=== PATIENT | female | born 1950 | race Caucasian/White ===

== ENCOUNTER → 2018-06-02 15:59 | Outpatient (CLI) | payer MEDICARE, OTHER, SELFPAY ==
[2018-06-02 16:28] LABS: Add Manual Diff / Slide Review NO; Basophils Percent Auto 0.8 % (0-2); Eosinophils Percent Auto 4.5 % (2-4); Hematocrit 44.1 % (36-46); Hemoglobin 14.5 g/dL (12.0-16.0); Lymphocytes Percent Auto 18.6 % (25-40); Mean Corpuscular HGB Conc 32.9 % (30-36); Mean Corpuscular Hemoglobin 27.3 PG (26-34); Mean Corpuscular Volume 82.9 fL (80-100); Monocytes Percent Auto 6.7 % (3-14); Neutrophils Absolute Auto 5100 /uL (3000-5900); Neutrophils Percent Auto 69.4 % (50-75); Platelet Count 270 X10^3/uL (150-400); Red Blood Cell Count 5.33 X10^6/uL (4.0-5.2); Red Cell Distribution Width 14.6 % (11.6-14.8); White Blood Cell Count 7.4 X10^3/uL (4.5-11.0)
== END ==
PROVIDERS: PCP Family Medicine; Visit Provider Family Medicine
DX: D64.9 Anemia, unspecified (principal)
CPT/HCPCS: 36415; 85025

== ENCOUNTER → 2018-11-05 17:30 | Outpatient (CLI) | payer MEDICARE, OTHER, SELFPAY | PROVIDERS: PCP Family Medicine; Visit Provider Obstetrics & Gynecology | DX: R33.9 Retention of urine, unspecified (principal) | CPT/HCPCS: 87086 ==

== ENCOUNTER → 2018-12-04 14:07 | Outpatient (CLI) | payer MEDICARE, OTHER, SELFPAY ==
--- NOTE | 2018-12-04 | DI.MG.S_ITS ---
BILATERAL DIGITAL SCREENING MAMMOGRAM 3D/2D WITH CAD: 12/04/2018 CLINICAL: Routine screening. Comparison is made to exams dated: 09/26/2017 mammogram, 09/06/2016 mammogram, and 09/04/2015 mammogram - . The tissue of both breasts is heterogeneously dense. This may lower the sensitivity of mammography. Current study was also evaluated with a Computer Aided Detection (CAD) system. There are benign vascular calcifications in the right breast. No significant masses, calcifications, or other findings are seen in either breast. There has been no significant interval change. IMPRESSION: There is no mammographic evidence of malignancy. A 1 year screening mammogram is recommended. This exam was interpreted at Station ID: [id number]. NOTE: For mammograms, a report in lay terms will be sent to the patient. Approximately 15% of breast malignancies will not be visualized mammographically. In the management of a palpable breast mass, a negative mammogram must not discourage biopsy of a clinically suspicious lesion. Electronically Signed By: Abdirahman [email or web address]/pedrito:12/04/2018 17:30:28 copy to: Antonella Robles letter sent: Normal Exam ACR BI-RADS Category 2: Benign Finding(s) [id number]
--- NOTE | 2018-12-04 14:09 | DI.RAD.S_ITS ---
This blank DEXA report has been sent in error by the PACS system. The correct and complete report will be forthcoming in 1-2 days. Thank you for your patience and understanding. Dictated by: Karen Navarro MD, PhD on 12/05/2018 at 9:29 Approved by: Karen Navarro MD, PhD on 12/05/2018 at 9:29
== END ==
PROVIDERS: PCP Family Medicine; Visit Provider Family Medicine
DX: Z12.31 Encounter for screening mammogram for malignant neoplasm of breast (principal); M81.0 Age-related osteoporosis without current pathological fracture; Z78.0 Asymptomatic menopausal state; Z82.62 Family history of osteoporosis
CPT/HCPCS: 77063; 77067; 77080

== ENCOUNTER → 2018-12-09 11:44 | Outpatient (CLI) | payer MEDICARE, OTHER, SELFPAY ==
[2018-12-09 12:07] LABS: Add Manual Diff / Slide Review NO; Basophils Absolute Auto 100 /uL (0-100); Basophils Percent Auto 0.7 % (0-2); Eosinophils Absolute Auto 400 /uL (0-450); Eosinophils Percent Auto 4.5 % (2-4); Hematocrit 42.1 % (36-46); Hemoglobin 13.6 g/dL (12.0-16.0); Lymphocytes Absolute Auto 1800 /uL (1100-4500); Mean Corpuscular HGB Conc 32.4 % (30-36); Mean Corpuscular Hemoglobin 27.4 PG (26-34); Mean Corpuscular Volume 84.8 fL (80-100); Monocytes Absolute Auto 500 /uL (0-900); Monocytes Percent Auto 5.9 % (3-14); Neutrophils Absolute Auto 5500 /uL (1500-7000); Neutrophils Percent Auto 66.9 % (50-75); Platelet Count 289 X10^3/uL (150-400); Red Blood Cell Count 4.97 X10^6/uL (4.0-5.2); Red Cell Distribution Width 13.7 % (11.6-14.8); White Blood Cell Count 8.3 X10^3/uL (4.5-11.0)
[2018-12-09 13:18] LABS: Alanine Aminotransferase 30 IU/L (9-52); Albumin 4.1 g/dL (3.5-5.0); Albumin Globulin Ratio 1.5 (1.0-2.8); Alkaline Phosphatase 99 U/L (38-126); Aspartate Aminotransferase 27 IU/L (14-36); BUN Creatinine Ratio 28.8 (6-22); Bilirubin Total 0.3 mg/dL (0.2-1.3); Blood Urea Nitrogen 23 mg/dL (7-17); Calcium 9.7 mg/dL (8.4-10.2); Carbon Dioxide 30 mmol/L (22-32); Chloride 102 mmol/L (98-107); Cholesterol 198 mg/dL (140-199); Estimated Glomerular Filt Rate > 60.0 mL/min (>60); Globulin 2.7 g/dL (1.7-4.1); Glucose 88 mg/dL (80-110); HDL Cholesterol 54 mg/dL (40-60); HEMOLYSIS < 15 (0-50); LDL Cholesterol Calculated 121 mg/dL (<100); Sodium 141 mmol/L (137-145); Total Protein 6.8 g/dL (6.3-8.2); Triglycerides 113 mg/dL (35-150)
[2018-12-09 13:49] LABS: Thyroid Stimulating Hormone 4.65 uIU/mL (0.47-4.68)
== END ==
PROVIDERS: PCP Family Medicine; Visit Provider Family Medicine
DX: I10 Essential (primary) hypertension (principal); D50.0 Iron deficiency anemia secondary to blood loss (chronic)
CPT/HCPCS: 36415; 80053; 80061; 84443; 85025

== ENCOUNTER → 2019-01-27 13:44 | Outpatient (CLI) | payer MEDICARE, OTHER, SELFPAY ==
[2019-01-27 15:06] LABS: Free T3, Triiodothyronine Free 2.91 pg/mL (2.77-5.27)
[2019-01-27 15:20] LABS: Thyroid Stimulating Hormone 4.74 uIU/mL (0.47-4.68)
[2019-01-29 15:06] LABS: Thyroid Peroxidase Antibodies < 1 IU/mL (< 9)
[2019-02-02 15:00] LABS: Triiodothyronine T3 Reverse 10 ng/dL (8-25)
== END ==
PROVIDERS: PCP Family Medicine; Visit Provider Family Medicine
DX: E03.9 Hypothyroidism, unspecified (principal)
CPT/HCPCS: 36415; 84439; 84443; 84481; 84482; 86376

== ENCOUNTER → 2019-05-13 14:43 | Outpatient (CLI) | payer MEDICARE, OTHER, SELFPAY ==
[2019-05-13 15:34] LABS: Add Manual Diff / Slide Review NO; Basophils Absolute Auto 0 /uL (0-100); Basophils Percent Auto 0.7 % (0-2); Eosinophils Absolute Auto 200 /uL (0-450); Eosinophils Percent Auto 2.9 % (2-4); Hematocrit 44.3 % (36-46); Hemoglobin 14.6 g/dL (12.0-16.0); Lymphocytes Absolute Auto 1100 /uL (1100-4500); Mean Corpuscular HGB Conc 32.9 % (30-36); Mean Corpuscular Volume 81.8 fL (80-100); Monocytes Absolute Auto 500 /uL (0-900); Monocytes Percent Auto 8.4 % (3-14); Neutrophils Absolute Auto 4400 /uL (1500-7000); Platelet Count 125 X10^3/uL (150-400); Red Blood Cell Count 5.41 X10^6/uL (4.0-5.2); Red Cell Distribution Width 14.9 % (11.6-14.8); White Blood Cell Count 6.3 X10^3/uL (4.5-11.0)
[2019-05-13 15:55] LABS: HEMOLYSIS < 15 (0-50); Iron 99 ug/dL (37-170)
[2019-05-13 16:07] LABS: Percent Iron Saturation 32 % (15-50); Total Iron Binding Capacity 305 ug/dL (265-497); Transferrin 244 mg/dL (206-381)
[2019-05-13 16:14] LABS: Free T4, Direct Thyroxine 1.03 ng/dL (0.78-2.19)
[2019-05-13 16:18] LABS: Ferritin 21.3 ng/mL (11.1-264)
[2019-05-13 16:28] LABS: Thyroid Stimulating Hormone 1.33 uIU/mL (0.47-4.68)
[2019-05-15 15:25] LABS: HSV 2 IGG AB < 0.90 index (< 0.90); HSV1IGG < 0.90 index (< 0.90)
== END ==
PROVIDERS: PCP Family Medicine; Visit Provider Family Medicine
DX: E03.9 Hypothyroidism, unspecified (principal); L98.9 Disorder of the skin and subcutaneous tissue, unspecified; D50.0 Iron deficiency anemia secondary to blood loss (chronic)
CPT/HCPCS: 36415; 82728; 83540; 83550; 84439; 84443; 84481; 85025; 86695; 86696

== ENCOUNTER → 2019-06-01 16:40 | Outpatient (CLI) | payer MEDICARE, OTHER, SELFPAY ==
[2019-06-04 14:18] LABS: Fecal Immunochemical Test NOT DETECTED (NOT DETECTED)
== END ==
PROVIDERS: PCP Family Medicine; Visit Provider Family Medicine
DX: Z12.11 Encounter for screening for malignant neoplasm of colon (principal)
CPT/HCPCS: 82274

== ENCOUNTER 2019-06-17 16:00 | Outpatient (RCR) | payer MEDICARE, OTHER, SELFPAY ==
--- NOTE | 2019-03-18 19:25 | PT.OIE ---
Current Diagnoses Stress incontinence (female) (male) (03/16/19) Past Medical History (Last Updated 06/10/18 @ 12:31 by Ellie Reyna) Amebic dysentery (Acute ~1963) Chickenpox (Acute ~1952) Chronic back pain (Acute ~1999) Foot pain (Acute ~1969) Fracture (Acute) GERD (gastroesophageal reflux disease) (Acute ~1989) Hepatitis A (Acute ~1963) History of frequent headaches (Acute ~2004) Hyperlipidemia (Acute) Hypertension (Acute ~2003) Malaria (Acute ~1960) Nasal septal perforation (Acute ~2009) Osteopenia (Acute ~1999) Positive PPD (Acute ~1979) Redundant colon (Acute) Rubella (Acute ~1961) Seasonal allergies (Acute ~1955) Shoulder pain (Acute ~2004) Sunstroke (Acute ~1964) Vision abnormalities (Acute) Whooping cough (Acute ~1948) Past Surgical History (Last Updated 06/10/18 @ 12:31 by Ellie Reyna) Fusion of lumbar spine (Resolved ~01/14/17) Anesthesia (Inactive) History of third molar tooth extraction (~1969) Status post appendectomy (~1964) Status post ovarian cystectomy (~1964) Status post tonsillectomy and adenoidectomy (~1951) Status post vaginal hysterectomy (~1981) Provider Visit Care Team Role Provider Type Antonella Robles DO Primary Care Provider Physician Specialty: Family Practice Address: [address] [place] [address], [address] Email: [email or web address] Christen Boo MD Attending Provider Non-Staff Specialty: OPERATIONS ASST Address: [facility] [address], [address] Email: Physical Therapy Initial Evaluation PT-OP-A Visit Information Start: 03/18/19 18:57 Freq: Status: Active Protocol: Document 03/16/19 13:45 [facility] (Rec: 03/18/19 19:25 [facility] [email or web address]) Out-Patient Physical Therapy Visit Information Visit Information Visit Type Initial Evaluation Visit Note 68 year old female s/p anterior posterior repain on 11/03/19 who is referred for pelvic floor strengthening and urinary stress incontinence Visit Start Time 13:45 Visit Stop Time 14:30 Total Visit Minutes 45 Visit Number 1 Evaluation Information Evaluation Date 03/16/19 PT-OP-B Current Condition Start: 03/18/19 18:57 Freq: Status: Active Protocol: Document 03/16/19 13:45 [facility] (Rec: 03/18/19 19:25 [facility] [email or web address]) Current Condition History of Current Condition Onset Date October 2019 Current Complaints urinary stress incontinence and pelvic floor weakness History of Current Condition 68 year old female referred to PT for pelvic floor strengthening s/p a anterior and posterior repair. She reports prior to her surgery she experienced pelvic pressure and heaviness as well as urgnecy. Now she is experiencing urinary leakage with coughing and sneezing or bending movements without first engaging her pelvic floor. She is still experiencing some urgency but not as severe as she had been. She also has a history of L4 -5 lumbar fusion in 2017 which she still has some low back discomfort from. Her pain in her low sacral area ranges from 2-6/10 depending on activity Treatment Goals Patient/Caregiver Goals Goals include reducing urinary incontinence Prior Functional Status Baseline Function- ADL's Independent Baseline Function- Mobility Independent Baseline Function- Recreation/Hobbies no leaking with activity or coughing/sneezing PT-OP-C Subjective Start: 03/18/19 18:57 Freq: Status: Active Protocol: Document 03/16/19 13:45 AM[facility] (Rec: 03/18/19 19:25 AM[facility] [email or web address]) Patient Questionnaires Pelvic Pain and Urgency/Frequency Patient Symptom Scale Pelvic Pain Score 10 PT-OP-F Manual Assessment Start: 03/18/19 18:57 Freq: Status: Active Protocol: Document 03/16/19 13:45 [facility] (Rec: 03/18/19 19:25 [facility] [email or web address]) Manual Assessments Soft Tissue Assessment Soft Tissue Mobility Assessment guarding noted on the right lateral wall of the levator ani from 6-9 PT-OP-I Pelvic Floor Start: 03/18/19 18:57 Freq: Status: Active Protocol: Document 03/16/19 13:45 AM[facility] (Rec: 03/18/19 19:25 AM[facility] [email or web address]) Pelvic Floor Assessment Urine Pelvic Floor Surgery Yes Urinary Symptoms Urge Sensation Other Urinary Symptoms urinary stress incontinence Leakage Size Small Leakage Cause Cough Exercise Sneeze Urge Other Leakage Causes bending over quickly and first thing in the AM Leaks Per Day 3 per week Voiding Frequency every 1.5-2 hours Nocturia 2-3 times per night Pads Used In 24 Hours changes as needed throughout the day Urine Pad Type Panty Liner Pelvic Clock Pelvic Clock 12-3 Atrophy Pelvic Clock 3-6 Atrophy Pelvic Clock 6-9 Guarding Pelvic Clock 9-12 Atrophy SEMG (uV) Baseline 2.3 10 Second Contraction 11.8 Recruitment Pattern Fair Relaxation Fair Holding Fair Stability of Hold Fair SEMG Stability of Rest Fair Contraction Ability Voluntary Contraction Weak Voluntary Relaxation Weak Manual Muscle Testing Left 2 Manual Muscle Testing Right 3 Manual Muscle Testing Anterior 3 Manual Muscle Testing Posterior 3 Muscle Endurance (Seconds) 5 Comments Pelvic Floor Comments ON EMG BIOFEEDBACK average is 11.8 uv, max of 23.3 uv, resting tone of 2.3 uv PT-OP-Q Treatments Start: 03/18/19 18:57 Freq: Status: Active Protocol: Document 03/16/19 13:45 [facility] (Rec: 03/18/19 19:25 COUNTS INCLUDE 234 BEDS AT THE [facility] [email or web address]) Therapeutic Exercises Supine Exercises 1 Supine Exercise Name EMG BIOFEEDBACK FOR PELVIC FLOOR RECRUITMENT Comments began pelvic floor contractions of 10 second hold time and 10 second relax PT-OP-T Assessment and Plan Start: 03/18/19 18:57 Freq: Status: Active Protocol: Document 03/16/19 13:45 AM[facility] (Rec: 03/18/19 19:25 COUNTS INCLUDE 234 BEDS AT THE [facility] [email or web address]) Physical Therapy Assessment Rehab Potential Rehabilitation Potential Excellent Evaluation Complexity Number of Personal Factors/Comorbidities 0 Number of Body Systems Impaired 1-2 Clinical Presentation at Evaluation Stable Impairments Impairments Activity Tolerance Pain Strength Tone Other Impairments urinary stress incontinence Goals Four Impairment The patient lacks a home program for pelvic floor strengthening Retail Banker Goal (LTG) Steven is independent with a home program for pelvic floor stabilization to support her pelvic organs Three Impairment guarding of the right illiococcygeus and pain with intercourse Long-Term Goal (LTG) With manual therapy techniques and stretches we are able to relax the right illiococcygeus and Steven is no longer experiencing pain with intercourse LTG Duration 8 weeks Two Impairment Decreased endurance of the pelvic floor, currently 5 second hold time Short Term Goal (STG) Improve endurance holds to 10 seconds in supine One Impairment pelvic floor weakness s/p anterior posterior repair Short Term Goal (STG) improve recruitment of the left lateral wall of the pelvic floor as this is the weaker side with MMT of 2/5 STG Duration 4 weeks Retail Banker Goal (LTG) Improve pelvic floor strengh to MMT of 4/5 for improved support of the bladder LTG Duration 8 weeks Assessment Summary Assessment Steven presents to physical therapy today at 4 months s/p her anterior posterior repair for pelvic organ prolapse. At this point she is experiencing stress incontinence with coughing, sneezing, and bending movements that occur without bracing. She does still experience some urgency as well. Pelvic pressure is decreased overall. She has pain with intercourse. With examination today she is the most weak on the left lateral wall at 2/5 MMT and is 3/5 with all other MMT of the levator ani. She does have some guarding on the right lateral wall of the illiococcygeus that may be contributing to her pain with intercourse. I did start her today with EMG biofeedback. She did have a slightly elevated resting tone at 2.3 uv . Her average is 11.8 and max is 23. I expect her to do very well with pelvic floor strengthening. Physical Therapy Plan Frequency and Duration Frequency of Treatment 1x/Week Duration of Treatment 8 weeks Plan of Care Start Date 03/16/19 Plan of Care End Date 05/11/19 Therapeutic Interventions Therapeutic Interventions Manual Therapy Neuromuscular Re-education Patient/Caregiver Education Self-Care/Home Management Soft Tissue Mobilization Therapeutic Exercises Modalities Biofeedback Electric Stimulation Next Visit Focus/Plan Next Note Type Treatment Note Next Visit Plan Begin working on hip stabilization next visit to help support the pelvic floor
--- NOTE | 2019-03-18 19:26 | PT.OPPOC ---
Current Diagnoses Stress incontinence (female) (male) (03/16/19) Provider Visit Care Team Role Provider Type Antonella Robles DO Primary Care Provider Physician Specialty: Family Practice Address: [address] [place] [address], [address] Email: [email or web address] Christen Boo MD Attending Provider Non-Staff Specialty: CRISIS COUNSELOR Address: [facility] [address], [place], [address] Email: Plan Of Care PT-OP-T Assessment and Plan Start: 03/18/19 18:57 Freq: Status: Active Protocol: Document 03/16/19 13:45 AM[facility] (Rec: 03/18/19 19:25 [facility] [email or web address]) Physical Therapy Assessment Rehab Potential Rehabilitation Potential Excellent Evaluation Complexity Number of Personal Factors/Comorbidities 0 Number of Body Systems Impaired 1-2 Clinical Presentation at Evaluation Stable Impairments Impairments Activity Tolerance Pain Strength Tone Other Impairments urinary stress incontinence Goals Four Impairment The patient lacks a home program for pelvic floor strengthening Animal Trainer Goal (LTG) Steven is independent with a home program for pelvic floor stabilization to support her pelvic organs Three Impairment guarding of the right illiococcygeus and pain with intercourse Animal Trainer Goal (LTG) With manual therapy techniques and stretches we are able to relax the right illiococcygeus and Steven is no longer experiencing pain with intercourse LTG Duration 8 weeks Two Impairment Decreased endurance of the pelvic floor, currently 5 second hold time Short Term Goal (STG) Improve endurance holds to 10 seconds in supine One Impairment pelvic floor weakness s/p anterior posterior repair Short Term Goal (STG) improve recruitment of the left lateral wall of the pelvic floor as this is the weaker side with MMT of 2/5 STG Duration 4 weeks Animal Trainer Goal (LTG) Improve pelvic floor strengh to MMT of 4/5 for improved support of the bladder LTG Duration 8 weeks Assessment Summary Assessment Steven presents to physical therapy today at 4 months s/p her anterior posterior repair for pelvic organ prolapse. At this point she is experiencing stress incontinence with coughing, sneezing, and bending movements that occur without bracing. She does still experience some urgency as well. Pelvic pressure is decreased overall. She has pain with intercourse. With examination today she is the most weak on the left lateral wall at 2/5 MMT and is 3/5 with all other MMT of the levator ani. She does have some guarding on the right lateral wall of the illiococcygeus that may be contributing to her pain with intercourse. I did start her today with EMG biofeedback. She did have a slightly elevated resing tone at 2.3 uv . Her average is 11.8 and max is 23. I expect her to do very well with pelvic floor strengthening. Physical Therapy Plan Frequency and Duration Frequency of Treatment 1x/Week Duration of Treatment 8 weeks Plan of Care Start Date 03/16/19 Plan of Care End Date 05/11/19 Therapeutic Interventions Therapeutic Interventions Manual Therapy Neuromuscular Re-education Patient/Caregiver Education Self-Care/Home Management Soft Tissue Mobilization Therapeutic Exercises Modalities Biofeedback Electric Stimulation Next Visit Focus/Plan Next Note Type Treatment Note Next Visit Plan Begin working on hip stabilization next visit to help support the pelvic floor Plan of Care Dates Plan of Care Start Date 03/16/19 Plan of Care End Date 05/11/19 Please Sign and Return: I have reviewed this Plan of Care and certify that the skilled therapy services above are required to meet the patient?s needs. Physician Signature Date Printed Name and Credentials Clinical Instructor Signature Printed Name and Credentials
--- NOTE | 2019-03-23 17:49 | PT.OTN ---
Current Diagnoses Stress incontinence (female) (male) (03/23/19) Physical Therapy Treatment Note PT-OP-A Visit Information Start: 03/18/19 18:57 Freq: Status: Active Protocol: Document 03/23/19 17:38 AM[facility] (Rec: 03/23/19 17:49 [facility] [email or web address]) Out-Patient Physical Therapy Visit Information Visit Information Visit Type Treatment Note Visit Start Time 13:45 Visit Stop Time 14:30 Total Visit Minutes 45 Visit Number 2 Evaluation Information Evaluation Date 03/16/19 PT-OP-B Current Condition Start: 03/18/19 18:57 Freq: Status: Active Protocol: Document 03/16/19 13:45 AMH (Rec: 03/18/19 19:25 AM[facility] [email or web address]) Current Condition History of Current Condition Onset Date October 2019 Current Complaints urinary stress incontinence and pelvic floor weakness History of Current Condition 68 year old female referred to PT for pelvic floor strengthening s/p a anterior and posterior repair. She reports prior to her surgery she experienced pelvic pressure and heaviness as well as urgnecy. Now she is experiencing urinary leakage with coughing and sneezing or bending movements without first engaging her pelvic floor. She is still experiencing some urgency but not as severe as she had been. She also has a history of L4 -5 lumbar fusion in 2017 which she still has some low back discomfort from. Her pain in her low sacral area ranges from 2-6/10 depending on activity Treatment Goals Patient/Caregiver Goals Goals include reducing urinary incontinence Prior Functional Status Baseline Function- ADL's Independent Baseline Function- Mobility Independent Baseline Function- Recreation/Hobbies no leaking with activity or coughing/sneezing PT-OP-C Subjective Start: 03/18/19 18:57 Freq: Status: Active Protocol: Document 03/23/19 17:38 AMH (Rec: 03/23/19 17:49 AMH [email or web address]) OP-PT Subjective Patient Comments Patient Comments Dulcie reports in the last two days she hasn't experienced any leaking and since last week she hasn't experienced any urgency. PT-OP-F Manual Assessment Start: 03/18/19 18:57 Freq: Status: Active Protocol: Document 03/16/19 13:45 AMH (Rec: 03/18/19 19:25 AMH [email or web address]) Manual Assessments Soft Tissue Assessment Soft Tissue Mobility Assessment guarding noted on the right lateral wall of the levator ani from 6-9 PT-OP-I Pelvic Floor Start: 03/18/19 18:57 Freq: Status: Active Protocol: Document 03/16/19 13:45 AMH (Rec: 03/18/19 19:25 [facility] [email or web address]) Pelvic Floor Assessment Urine Pelvic Floor Surgery Yes Urinary Symptoms Urge Sensation Other Urinary Symptoms urinary stress incontinence Leakage Size Small Leakage Cause Cough Exercise Sneeze Urge Other Leakage Causes bending over quickly and first thing in the AM Leaks Per Day 3 per week Voiding Frequency every 1.5-2 hours Nocturia 2-3 times per night Pads Used In 24 Hours changes as needed throughout the day Urine Pad Type Panty Liner Pelvic Clock Pelvic Clock 12-3 Atrophy Pelvic Clock 3-6 Atrophy Pelvic Clock 6-9 Guarding Pelvic Clock 9-12 Atrophy SEMG (uV) Baseline 2.3 10 Second Contraction 11.8 Recruitment Pattern Fair Relaxation Fair Holding Fair Stability of Hold Fair SEMG Stability of Rest Fair Contraction Ability Voluntary Contraction Weak Voluntary Relaxation Weak Manual Muscle Testing Left 2 Manual Muscle Testing Right 3 Manual Muscle Testing Anterior 3 Manual Muscle Testing Posterior 3 Muscle Endurance (Seconds) 5 Comments Pelvic Floor Comments ON EMG BIOFEEDBACK average is 11.8 uv, max of 23.3 uv, resting tone of 2.3 uv PT-OP-Q Treatments Start: 03/18/19 18:57 Freq: Status: Active Protocol: Document 03/23/19 17:38 AM[facility] (Rec: 03/23/19 17:49 [facility] [email or web address]) Therapeutic Exercises Supine Exercises 5 Supine Exercise Name EMG BIOFEEDBACK templates for coordination and eccentric control 4 Supine Exercise Name roll outs with theraband Reps/Minutes 3 x 10 reps 3 Supine Exercise Name roll ins with ball squeeze Reps/Minutes x 10 reps 2 Supine Exercise Name pelvic floor quick contractions Reps/Minutes 10 reps 2 second hold time 4 second relaxation 1 Supine Exercise Name EMG BIOFEEDBACK FOR PELVIC FLOOR RECRUITMENT Comments began pelvic floor contractions of 10 second hold time and 10 second relax Standing Exercises 1 Standing Exercise Name standing pelvic floor contracion PT-OP-T Assessment and Plan Start: 03/18/19 18:57 Freq: Status: Active Protocol: Document 03/23/19 17:38 [facility] (Rec: 03/23/19 17:49 [facility] [email or web address]) Physical Therapy Assessment Assessment Summary Assessment Good increase today in max contraction on EMG biofeedback . Steven is tolerating her exercises well and has noticed a decrease in leakage and has not experienced urgency this past week. Physical Therapy Plan Frequency and Duration Frequency of Treatment 1x/Week Duration of Treatment 8 weeks Plan of Care Start Date 03/16/19 Plan of Care End Date 05/11/19 Therapeutic Interventions Therapeutic Interventions Manual Therapy Neuromuscular Re-education Patient/Caregiver Education Self-Care/Home Management Soft Tissue Mobilization Therapeutic Exercises Modalities Biofeedback Electric Stimulation Next Visit Focus/Plan Next Note Type Treatment Note Next Visit Plan progress to standing upright positions including sit to stand with pelvic floor engagement
--- NOTE | 2019-04-14 14:26 | PT.OTN ---
Current Diagnoses Stress incontinence (female) (male) (04/13/19) Physical Therapy Treatment Note PT-OP-A Visit Information Start: 03/18/19 18:57 Freq: Status: Active Protocol: Document 04/13/19 13:45 [facility] (Rec: 04/14/19 14:26 [facility] [email or web address]) Out-Patient Physical Therapy Visit Information Visit Information Visit Type Treatment Note Visit Start Time 13:45 Visit Stop Time 14:30 Total Visit Minutes 45 Visit Number 3 PT-OP-B Current Condition Start: 03/18/19 18:57 Freq: Status: Active Protocol: Document 03/16/19 13:45 [facility] (Rec: 03/18/19 19:25 [facility] [email or web address]) Current Condition History of Current Condition Onset Date October 2019 Current Complaints urinary stress incontinence and pelvic floor weakness History of Current Condition 68 year old female referred to PT for pelvic floor strengthening s/p a anterior and posterior repair. She reports prior to her surgery she experienced pelvic pressure and heaviness as well as urgnecy. Now she is experiencing urinary leakage with coughing and sneezing or bending movements without first engaging her pelvic floor. She is still experiencing some urgency but not as severe as she had been. She also has a history of L4 -5 lumbar fusion in 2017 which she still has some low back discomfort from. Her pain in her low sacral area ranges from 2-6/10 depending on activity Treatment Goals Patient/Caregiver Goals Goals include reducing urinary incontinence Prior Functional Status Baseline Function- ADL's Independent Baseline Function- Mobility Independent Baseline Function- Recreation/Hobbies no leaking with activity or coughing/sneezing PT-OP-C Subjective Start: 03/18/19 18:57 Freq: Status: Active Protocol: Document 04/13/19 13:45 [facility] (Rec: 04/14/19 14:26 [facility] [email or web address]) OP-PT Subjective Patient Comments Patient Comments Dulcie reports decreased c/o urgency now. She has had one leak in the past two weeks. PT-OP-F Manual Assessment Start: 03/18/19 18:57 Freq: Status: Active Protocol: Document 03/16/19 13:45 [facility] (Rec: 03/18/19 19:25 [facility] [email or web address]) Manual Assessments Soft Tissue Assessment Soft Tissue Mobility Assessment guarding noted on the right lateral wall of the levator ani from 6-9 PT-OP-I Pelvic Floor Start: 03/18/19 18:57 Freq: Status: Active Protocol: Document 03/16/19 13:45 [facility] (Rec: 03/18/19 19:25 [facility] [email or web address]) Pelvic Floor Assessment Urine Pelvic Floor Surgery Yes Urinary Symptoms Urge Sensation Other Urinary Symptoms urinary stress incontinence Leakage Size Small Leakage Cause Cough Exercise Sneeze Urge Other Leakage Causes bending over quickly and first thing in the AM Leaks Per Day 3 per week Voiding Frequency every 1.5-2 hours Nocturia 2-3 times per night Pads Used In 24 Hours changes as needed throughout the day Urine Pad Type Panty Liner Pelvic Clock Pelvic Clock 12-3 Atrophy Pelvic Clock 3-6 Atrophy Pelvic Clock 6-9 Guarding Pelvic Clock 9-12 Atrophy SEMG (uV) Baseline 2.3 10 Second Contraction 11.8 Recruitment Pattern Fair Relaxation Fair Holding Fair Stability of Hold Fair SEMG Stability of Rest Fair Contraction Ability Voluntary Contraction Weak Voluntary Relaxation Weak Manual Muscle Testing Left 2 Manual Muscle Testing Right 3 Manual Muscle Testing Anterior 3 Manual Muscle Testing Posterior 3 Muscle Endurance (Seconds) 5 Comments Pelvic Floor Comments ON EMG BIOFEEDBACK average is 11.8 uv, max of 23.3 uv, resting tone of 2.3 uv PT-OP-Q Treatments Start: 03/18/19 18:57 Freq: Status: Active Protocol: Document 04/13/19 13:45 [facility] (Rec: 04/14/19 14:26 [facility] [email or web address]) Therapeutic Exercises Supine Exercises 5 Supine Exercise Name EMG BIOFEEDBACK templates for coordination and eccentric control 2 Supine Exercise Name pelvic floor quick contractions Reps/Minutes 10 reps 2 second hold time 4 second relaxation 1 Supine Exercise Name EMG BIOFEEDBACK FOR PELVIC FLOOR RECRUITMENT Comments began pelvic floor contractions of 10 second hold time and 10 second relax Sitting Exercises 1 Sitting Exercise Name seated pelvic floor contractions without gluteal substitution Standing Exercises 2 Standing Exercise Name sit-stand with pelvic floor contraction Reps/Minutes x 10 reps 1 Standing Exercise Name standing pelvic floor contracion Self-Care/Home Management Treatment Education Patient Education Home Exercise Program Other Education added in standing pelvic floor contractions, sitting pelvic floor contractions and avoiding gluteal substitution PT-OP-T Assessment and Plan Start: 03/18/19 18:57 Freq: Status: Active Protocol: Document 04/13/19 13:45 [facility] (Rec: 04/14/19 14:26 [facility] [email or web address]) Physical Therapy Assessment Assessment Summary Assessment Dulcie is doing well with pelvic floor recruitment. She was able to perform standing and sitting pelvic floor contractions but does need education on avoiding clenching of the gluteals. Physical Therapy Plan Frequency and Duration Frequency of Treatment 1x/Week Duration of Treatment 8 weeks Plan of Care Start Date 03/16/19 Plan of Care End Date 05/11/19 Therapeutic Interventions Therapeutic Interventions Manual Therapy Neuromuscular Re-education Patient/Caregiver Education Self-Care/Home Management Soft Tissue Mobilization Therapeutic Exercises Modalities Biofeedback Electric Stimulation Next Visit Focus/Plan Next Note Type Treatment Note Next Visit Plan review standing and sitting pelvic floor exercises. Continue to focus on endurance . Review hip exercises next visit
--- NOTE | 2019-04-22 10:30 | PT.OTN ---
Current Diagnoses Stress incontinence (female) (male) (04/20/19) Physical Therapy Treatment Note PT-OP-A Visit Information Start: 03/18/19 18:57 Freq: Status: Active Protocol: Document 04/20/19 13:45 [facility] (Rec: 04/22/19 10:26 [facility] [email or web address]) Out-Patient Physical Therapy Visit Information Visit Information Visit Type Treatment Note Visit Start Time 13:45 Visit Stop Time 14:30 Total Visit Minutes 45 Visit Number 4 PT-OP-B Current Condition Start: 03/18/19 18:57 Freq: Status: Active Protocol: Document 03/16/19 13:45 [facility] (Rec: 03/18/19 19:25 [facility] [email or web address]) Current Condition History of Current Condition Onset Date October 2019 Current Complaints urinary stress incontinence and pelvic floor weakness History of Current Condition 68 year old female referred to PT for pelvic floor strengthening s/p a anterior and posterior repair. She reports prior to her surgery she experienced pelvic pressure and heaviness as well as urgnecy. Now she is experiencing urinary leakage with coughing and sneezing or bending movements without first engaging her pelvic floor. She is still experiencing some urgency but not as severe as she had been. She also has a history of L4 -5 lumbar fusion in 2017 which she still has some low back discomfort from. Her pain in her low sacral area ranges from 2-6/10 depending on activity Treatment Goals Patient/Caregiver Goals Goals include reducing urinary incontinence Prior Functional Status Baseline Function- ADL's Independent Baseline Function- Mobility Independent Baseline Function- Recreation/Hobbies no leaking with activity or coughing/sneezing PT-OP-C Subjective Start: 03/18/19 18:57 Freq: Status: Active Protocol: Document 04/20/19 13:45 [facility] (Rec: 04/22/19 10:26 [facility] [email or web address]) OP-PT Subjective Patient Comments Patient Comments No leakage this week, she has had her grandkids in town so it has been difficult to do all her exercises PT-OP-F Manual Assessment Start: 03/18/19 18:57 Freq: Status: Active Protocol: Document 03/16/19 13:45 [facility] (Rec: 03/18/19 19:25 [facility] [email or web address]) Manual Assessments Soft Tissue Assessment Soft Tissue Mobility Assessment guarding noted on the right lateral wall of the levator ani from 6-9 PT-OP-I Pelvic Floor Start: 03/18/19 18:57 Freq: Status: Active Protocol: Document 03/16/19 13:45 [facility] (Rec: 03/18/19 19:25 [facility] [email or web address]) Pelvic Floor Assessment Urine Pelvic Floor Surgery Yes Urinary Symptoms Urge Sensation Other Urinary Symptoms urinary stress incontinence Leakage Size Small Leakage Cause Cough Exercise Sneeze Urge Other Leakage Causes bending over quickly and first thing in the AM Leaks Per Day 3 per week Voiding Frequency every 1.5-2 hours Nocturia 2-3 times per night Pads Used In 24 Hours changes as needed throughout the day Urine Pad Type Panty Liner Pelvic Clock Pelvic Clock 12-3 Atrophy Pelvic Clock 3-6 Atrophy Pelvic Clock 6-9 Guarding Pelvic Clock 9-12 Atrophy SEMG (uV) Baseline 2.3 10 Second Contraction 11.8 Recruitment Pattern Fair Relaxation Fair Holding Fair Stability of Hold Fair SEMG Stability of Rest Fair Contraction Ability Voluntary Contraction Weak Voluntary Relaxation Weak Manual Muscle Testing Left 2 Manual Muscle Testing Right 3 Manual Muscle Testing Anterior 3 Manual Muscle Testing Posterior 3 Muscle Endurance (Seconds) 5 Comments Pelvic Floor Comments ON EMG BIOFEEDBACK average is 11.8 uv, max of 23.3 uv, resting tone of 2.3 uv PT-OP-Q Treatments Start: 03/18/19 18:57 Freq: Status: Active Protocol: Document 04/20/19 13:45 [facility] (Rec: 04/22/19 10:26 [facility] [email or web address]) Therapeutic Exercises Supine Exercises 5 Supine Exercise Name EMG BIOFEEDBACK templates for coordination and eccentric control 3 Supine Exercise Name roll ins with ball squeeze Reps/Minutes x 10 reps 2 Supine Exercise Name pelvic floor quick contractions Reps/Minutes 10 reps 2 second hold time 4 second relaxation 1 Supine Exercise Name EMG BIOFEEDBACK FOR PELVIC FLOOR RECRUITMENT Comments began pelvic floor contractions of 10 second hold time and 10 second relax Sidelying Exercises 1 Sidelying Exercise Name sidelying clam shells Reps/Minutes 3 x 10 reps Standing Exercises 2 Standing Exercise Name sit-stand with pelvic floor contraction Reps/Minutes x 10 reps 1 Standing Exercise Name standing pelvic floor contraction PT-OP-T Assessment and Plan Start: 03/18/19 18:57 Freq: Status: Active Protocol: Document 04/20/19 13:45 [facility] (Rec: 04/22/19 10:30 [facility] [email or web address]) Physical Therapy Assessment Assessment Summary Assessment Good improvements with overall a reduction in symptoms, average on EMG biofeedback is 11.8 with max of 23 uv Physical Therapy Plan Frequency and Duration Frequency of Treatment 1x/Week Duration of Treatment 8 weeks Plan of Care Start Date 03/16/19 Plan of Care End Date 05/11/19 Therapeutic Interventions Therapeutic Interventions Manual Therapy Neuromuscular Re-education Patient/Caregiver Education Self-Care/Home Management Soft Tissue Mobilization Therapeutic Exercises Modalities Biofeedback Electric Stimulation Next Visit Focus/Plan Next Note Type Treatment Note Next Visit Plan pt to work on her own for the next few weeks, recheck in 3-4 weeks
--- NOTE | 2019-06-17 15:20 | PT.OPPOC ---
Current Diagnoses Stress incontinence (female) (male) (06/17/19) Provider Visit Care Team Role Provider Type Antonella Robles DO Primary Care Provider Physician Specialty: Family Practice Address: [address] [place] [address], [id number] Email: [email or web address] Christen Boo MD Attending Provider Non-Staff Specialty: [employer] Address: [facility] [address], [place], [address] Email: Plan of Care Dates Plan of Care Start Date 06/17/19 Plan of Care End Date 06/17/19 Please Sign and Return: I have reviewed this Plan of Care and certify that the skilled therapy services above are required to meet the patient?s needs. Physician Signature Date Printed Name and Credentials Clinical Instructor Signature Printed Name and Credentials
--- NOTE | 2019-06-17 16:55 | PT.OTN ---
Current Diagnoses Stress incontinence (female) (male) (06/17/19) Physical Therapy Treatment Note PT-OP-A Visit Information Start: 03/18/19 18:57 Freq: Status: Active Protocol: Document 06/17/19 16:49 [facility] (Rec: 06/17/19 16:55 [facility] [email or web address]) Out-Patient Physical Therapy Visit Information Visit Information Visit Type Treatment Note Visit Start Time 16:00 Visit Stop Time 16:30 Total Visit Minutes 30 Visit Number 4 PT-OP-B Current Condition Start: 03/18/19 18:57 Freq: Status: Active Protocol: Document 03/16/19 13:45 [facility] (Rec: 03/18/19 19:25 [facility] [email or web address]) Current Condition History of Current Condition Onset Date October 2019 Current Complaints urinary stress incontinence and pelvic floor weakness History of Current Condition 68 year old female referred to PT for pelvic floor strengthening s/p a anterior and posterior repair. She reports prior to her surgery she experienced pelvic pressure and heaviness as well as urgnecy. Now she is experiencing urinary leakage with coughing and sneezing or bending movements without first engaging her pelvic floor. She is still experiencing some urgency but not as severe as she had been. She also has a history of L4 -5 lumbar fusion in 2017 which she still has some low back discomfort from. Her pain in her low sacral area ranges from 2-6/10 depending on activity Treatment Goals Patient/Caregiver Goals Goals include reducing urinary incontinence Prior Functional Status Baseline Function- ADL's Independent Baseline Function- Mobility Independent Baseline Function- Recreation/Hobbies no leaking with activity or coughing/sneezing PT-OP-C Subjective Start: 03/18/19 18:57 Freq: Status: Active Protocol: Document 06/17/19 16:49 [facility] (Rec: 06/17/19 16:55 [facility] [email or web address]) OP-PT Subjective Patient Comments Patient Comments Dulcie reports she has been doing better overall with her symptoms. SHe is not rushing to the bathroom now and feels stronger in her pelvic floor. There will be some times still when she will feel like a strong cough or sneeze suprises her and she will leak a few drops but this is not very often. Patient Reported Progress Improving PT-OP-F Manual Assessment Start: 03/18/19 18:57 Freq: Status: Active Protocol: Document 03/16/19 13:45 [facility] (Rec: 03/18/19 19:25 [facility] [email or web address]) Manual Assessments Soft Tissue Assessment Soft Tissue Mobility Assessment guarding noted on the right lateral wall of the levator ani from 6-9 PT-OP-I Pelvic Floor Start: 03/18/19 18:57 Freq: Status: Active Protocol: Document 03/16/19 13:45 [facility] (Rec: 03/18/19 19:25 [facility] [email or web address]) Pelvic Floor Assessment Urine Pelvic Floor Surgery Yes Urinary Symptoms Urge Sensation Other Urinary Symptoms urinary stress incontinence Leakage Size Small Leakage Cause Cough Exercise Sneeze Urge Other Leakage Causes bending over quickly and first thing in the AM Leaks Per Day 3 per week Voiding Frequency every 1.5-2 hours Nocturia 2-3 times per night Pads Used In 24 Hours changes as needed throughout the day Urine Pad Type Panty Liner Pelvic Clock Pelvic Clock 12-3 Atrophy Pelvic Clock 3-6 Atrophy Pelvic Clock 6-9 Guarding Pelvic Clock 9-12 Atrophy SEMG (uV) Baseline 2.3 10 Second Contraction 11.8 Recruitment Pattern Fair Relaxation Fair Holding Fair Stability of Hold Fair SEMG Stability of Rest Fair Contraction Ability Voluntary Contraction Weak Voluntary Relaxation Weak Manual Muscle Testing Left 2 Manual Muscle Testing Right 3 Manual Muscle Testing Anterior 3 Manual Muscle Testing Posterior 3 Muscle Endurance (Seconds) 5 Comments Pelvic Floor Comments ON EMG BIOFEEDBACK average is 11.8 uv, max of 23.3 uv, resting tone of 2.3 uv PT-OP-Q Treatments Start: 03/18/19 18:57 Freq: Status: Active Protocol: Document 06/17/19 16:49 [facility] (Rec: 06/17/19 16:55 [facility] [email or web address]) Therapeutic Exercises Supine Exercises 5 Supine Exercise Name EMG BIOFEEDBACK templates for coordination and eccentric control Comments templates for eccentric control and coordination 2 Supine Exercise Name pelvic floor quick contractions Reps/Minutes 10 reps 2 second hold time 4 second relaxation 1 Supine Exercise Name EMG BIOFEEDBACK FOR PELVIC FLOOR RECRUITMENT Comments pelvic floor contractions of 10 second hold time and 10 second relax Sidelying Exercises 1 Sidelying Exercise Name sidelying clam shells Reps/Minutes 3 x 10 reps Standing Exercises 2 Standing Exercise Name sit-stand with pelvic floor contraction Reps/Minutes x 2 PT-OP-T Assessment and Plan Start: 03/18/19 18:57 Freq: Status: Active Protocol: Document 06/17/19 16:49 [facility] (Rec: 06/17/19 16:55 [facility] [email or web address]) Physical Therapy Assessment Goals Four Impairment The patient lacks a home program for pelvic floor strengthening Landmen Goal (LTG) Steven is independent with a home program for pelvic floor stabilization to support her pelvic organs GOAL MET Three Impairment guarding of the right illiococcygeus and pain with intercourse Alf Goal (LTG) With manual therapy techniques and stretches we are able to relax the right illiococcygeus and Steven is no longer experiencing pain with intercourse GOAL MET Two Impairment Decreased endurance of the pelvic floor, currently 5 second hold time Short Term Goal (STG) Improve endurance holds to 10 seconds in supine GOAL MET One Impairment pelvic floor weakness s/p anterior posterior repair Short Term Goal (STG) improve recruitment of the left lateral wall of the pelvic floor as this is the weaker side with MMT of 2/5 STG Duration 4 weeks Alf Goal (LTG) Improve pelvic floor strengh to MMT of 4/5 for improved support of the bladder LTG Duration 8 weeks Progress Towards Goals Progress Towards Goals Goals Met Assessment Summary Assessment Good awareness of her home program and Steven has been able to work independently on her own the past month. Her endurance is much improved overall and she is independent with a home program at this time. All goals have been met Physical Therapy Plan Discharge Physical Therapy Discharge Reasons Goals Met
== END 2019-06-18 13:21 | disposition home or self-care (01) ==
LOC: PHYS 16:00
PROVIDERS: PCP Family Medicine; Visit Provider Obstetrics & Gynecology
DX: N39.3 Stress incontinence (female) (male) (principal)
CPT/HCPCS: 97110; 97161; 97535

== ENCOUNTER → 2019-08-05 16:47 | Outpatient (CLI) | payer MEDICARE, OTHER, SELFPAY ==
[2019-08-05 17:29] LABS: Add Manual Diff / Slide Review NO; Basophils Absolute Auto 0 /uL (0-100); Basophils Percent Auto 0.5 % (0-2); Eosinophils Absolute Auto 200 /uL (0-450); Eosinophils Percent Auto 2.8 % (2-4); Hematocrit 43.4 % (36-46); Hemoglobin 14.1 g/dL (12.0-16.0); Lymphocytes Absolute Auto 1400 /uL (1100-4500); Mean Corpuscular HGB Conc 32.5 % (30-36); Mean Corpuscular Hemoglobin 27.2 PG (26-34); Mean Corpuscular Volume 83.5 fL (80-100); Monocytes Absolute Auto 400 /uL (0-900); Monocytes Percent Auto 6.6 % (3-14); Neutrophils Absolute Auto 4700 /uL (1500-7000); Neutrophils Percent Auto 69.1 % (50-75); Platelet Count 181 X10^3/uL (150-400); Red Cell Distribution Width 13.8 % (11.6-14.8); White Blood Cell Count 6.7 X10^3/uL (4.5-11.0)
[2019-08-05 17:47] LABS: HEMOLYSIS < 15 (0-50); Iron 127 ug/dL (37-170)
[2019-08-05 17:58] LABS: Percent Iron Saturation 42 % (15-50); Total Iron Binding Capacity 302 ug/dL (265-497); Transferrin 259 mg/dL (206-381)
[2019-08-05 18:06] LABS: Free T3, Triiodothyronine Free 3.29 pg/mL (2.77-5.27); Free T4, Direct Thyroxine 1.13 ng/dL (0.78-2.19)
[2019-08-05 18:19] LABS: Thyroid Stimulating Hormone 0.91 uIU/mL (0.47-4.68)
[2019-08-05 18:23] LABS: Ferritin 21.6 ng/mL (11.1-264)
== END ==
PROVIDERS: PCP Family Medicine; Visit Provider Family Medicine
DX: D64.9 Anemia, unspecified (principal); E03.9 Hypothyroidism, unspecified
CPT/HCPCS: 36415; 82728; 83540; 83550; 84439; 84443; 84481; 85025

== ENCOUNTER → 2019-12-14 15:18 | Outpatient (CLI) | payer MEDICARE, OTHER, SELFPAY ==
--- NOTE | 2019-12-14 | DI.MG.S_ITS ---
BILATERAL DIGITAL SCREENING MAMMOGRAM 3D/2D WITH CAD: 12/14/2019 CLINICAL: Routine screening. Comparison is made to exams dated: 12/04/2018 mammogram, 09/26/2017 mammogram, and 09/06/2016 mammogram - [facility]. The tissue of both breasts is heterogeneously dense. This may lower the sensitivity of mammography. Current study was also evaluated with a Computer Aided Detection (CAD) system. There are benign calcifications in both breasts. There also are benign vascular calcifications in the right breast. No significant masses, calcifications, or other findings are seen in either breast. There has been no significant interval change. IMPRESSION: There is no mammographic evidence of malignancy. A 1 year screening mammogram is recommended. This exam was interpreted at Station ID: [id number]. NOTE: For mammograms, a report in lay terms will be sent to the patient. Approximately 15% of breast malignancies will not be visualized mammographically. In the management of a palpable breast mass, a negative mammogram must not discourage biopsy of a clinically suspicious lesion. Electronically Signed By: Cassius brady/pedrito:12/14/2019 16:40:42 copy to: Antonella Robles letter sent: Normal Exam ACR BI-RADS Category 2: Benign Finding(s) 3342F
== END ==
PROVIDERS: PCP Family Medicine; Visit Provider Family Medicine
DX: Z12.31 Encounter for screening mammogram for malignant neoplasm of breast (principal)
CPT/HCPCS: 77063; 77067

== ENCOUNTER → 2020-01-13 17:52 | Oncology outpatient (ONC) | payer MEDICARE, OTHER, SELFPAY ==
[2019-06-16 13:29] VITALS: BP 132/75; PULSE 93; RESP 16; TEMP 36.9; O2SAT 100
[2019-06-16 14:34] LABS: Add Manual Diff / Slide Review NO; Basophils Absolute Auto 0 /uL (0-100); Basophils Percent Auto 0.4 % (0-2); Eosinophils Absolute Auto 200 /uL (0-450); Eosinophils Percent Auto 2.3 % (2-4); Hematocrit 42.5 % (36-46); Hemoglobin 14.2 g/dL (12.0-16.0); Lymphocytes Absolute Auto 1200 /uL (1100-4500); Lymphocytes Percent Auto 16.5 % (25-40); Mean Corpuscular HGB Conc 33.3 % (30-36); Mean Corpuscular Hemoglobin 27.5 PG (26-34); Mean Corpuscular Volume 82.5 fL (80-100); Monocytes Absolute Auto 400 /uL (0-900); Neutrophils Absolute Auto 5300 /uL (1500-7000); Neutrophils Percent Auto 74.8 % (50-75); Platelet Count 179 X10^3/uL (150-400); Red Blood Cell Count 5.15 X10^6/uL (4.0-5.2); White Blood Cell Count 7.1 X10^3/uL (4.5-11.0)
--- NOTE | 2019-06-16 16:57 | ONC.CONS ---
History of Present Illness - Data of Consult Consult date: 06/16/19 Primary Care Provider: Antonella Robles, DO - Consult Narrative Narrative: Diagnosis: Iron deficiency anemia Previous treatment: IV iron May 2018. History of present illness: Steven Frances is a 69 year old female who is referred for further evaluation of anemia. Last year the patient was noted to have a mild anemia with a low ferritin. She was treated with oral iron. She took it for about a month but had significant GI toxicity, specifically GERD. She really did not respond well to the oral iron either. She did have a stool guaiacs that were negative. There is no other evidence of a bleeding and she denied any epistaxis or gingival bleeding. No blood in the urine or stool. She has not had any vaginal bleeding. She tolerated the IV iron infusion better than oral. Afterwards, her hemoglobin and hematocrit normalized and her ferritin increased to about 60. She believes that she might have felt a little bit more energy after the iron infusion although she is not really sure. Over the last year, she has not been aware of any bleeding. She has had some ongoing mild fatigue. She denies any dyspnea on exertion although she does have a little bit when going up stairs. No dizziness or lightheadedness. No chest pain or pressure. She was concerned that the anemia may be recurring and had a CBC checked. It showed a normal hemoglobin and hematocrit. Her ferritin had dropped from about 60 down into the 20s. Incidentally, she was noted to have a mild thrombocytopenia at 125. She did not have any prior history of thrombocytopenia. She has never required a transfusion. She otherwise feels well. Her past medical history is notable for a mild hypothyroidism. She has had a distant history of malaria. She has had a prior hysterectomy appendectomy. She denies any prior history of anemia or thrombocytopenia. Her family history is negative for malignancy. She believes that her mother had anemia. Social history: She is a retired nurse. She grew up in [facility]. She does not smoke. CC: Danilo Kc MD Home Medications and Allergies Home Medications Medication Instructions Recorded Confirmed Type [CALCIUM] Q DAY #0 09/23/11 12/16/18 History polyethylene glycol 3350 [Miralax] 17 gm PO DAILY #0 09/23/11 12/16/18 History cholecalciferol (vitamin D3) 2,000 iu PO QDAY #0 10/01/11 12/16/18 History [Vitamin D3] triamcinolone acetonide 0 TOPICAL BID #30 gm 08/02/13 12/16/18 Rx clotrimazole-betamethasone 1 phong TOPICAL BID #15 gm 08/11/17 12/16/18 Rx [Lotrisone] mecobalamin (vitamin B12) 1,000 1,000 mcg SL 2XW tab 06/10/18 12/16/18 History mcg disintegrating tablet,sublingual cetirizine 10 mg capsule PO DAILY cap 12/16/18 12/16/18 History omeprazole 20 mg capsule,delayed 20 mg PO DAILY #90 cap 12/29/18 Rx release estradiol 0.5 mg tablet 0.25 mg PO Q DAY #90 tab 03/29/19 Rx levothyroxine 50 mcg tablet 50 mcg PO DAILY #90 tab 03/29/19 Rx amitriptyline 12.5 mg PO HS 06/16/19 History ranitidine HCl 150 mg PO DAILY 06/16/19 06/16/19 History Allergies Allergy/AdvReac Type Severity Reaction Status Date / Time codeine Allergy Mild BRADYCARDIA Verified 12/16/18 14:29 epinephrine Allergy Mild Verified 12/16/18 14:29 erythromycin base Allergy Mild GI UPSET Verified 12/16/18 14:29 Cephalosporins AdvReac Rash Verified 06/16/19 13:33 Medical History - Medical, Surgical, Family History Medical History: Medical History (Updated 06/16/19 @ 17:00 by Danilo Kc MD) Amebic dysentery Onset Date: ~1963 Chickenpox Onset Date: ~1952 Chronic back pain Onset Date: ~1999 Foot pain Onset Date: ~1969 Fracture GERD (gastroesophageal reflux disease) Onset Date: ~1989 Hepatitis A Onset Date: ~1963 History of frequent headaches Onset Date: ~2004 Hyperlipidemia Hypertension Onset Date: ~2003 Malaria Onset Date: ~1960 Nasal septal perforation Onset Date: ~2009 Osteopenia Onset Date: ~1999 Positive PPD Onset Date: ~1979 Redundant colon Rubella Onset Date: ~1961 Seasonal allergies Onset Date: ~1955 Shoulder pain Onset Date: ~2004 Sunstroke Onset Date: ~1964 Vision abnormalities Whooping cough Onset Date: ~1948 Surgical History: Surgical History (Updated 06/16/19 @ 17:00 by Danilo Kc MD) Fusion of lumbar spine Onset Date: ~01/14/17 Anesthesia History of third molar tooth extraction Onset Date: ~1969 Status post appendectomy Onset Date: ~1964 Status post ovarian cystectomy Onset Date: ~1964 Status post tonsillectomy and adenoidectomy Onset Date: ~1951 Status post vaginal hysterectomy Onset Date: ~1981 Family History: Family History (Updated 06/10/18 @ 12:33 by Ellie Reyna) Brother Age: 78 High cholesterol Father Heart disease High cholesterol Osteoporosis Renal failure Mother Heart disease Hypertension High cholesterol Osteoporosis Alzheimer's disease Pneumonia Sister Age: 76 High cholesterol Osteoporosis Sister Age: 74 Osteoporosis Sister Age: 68 High cholesterol - Social History Smoking Status: Never smoker Review of Systems - Patient Self-Reported Symptoms SR Constitution: Fatigue/Malaise Constitutional: normal activity level Ears, nose, mouth, throat: no lightheadedness Cardiovascular: no chest pain Respiratory: no shortness of breath Gastrointestinal: no change in appetite Hematologic/Lymphatic: anemia Exam Vital signs: Vital Signs Temp Pulse Resp BP Pulse Ox 06/16/19 13:29 98.5 F 93 H 16 132/75 100 Intake and Output 06/16/19 06/16/19 06/16/19 07:59 15:59 23:59 Other: Weight 64.3 kg Patient Weight 06/16/19 23:59 Weight 64.3 kg - Constitutional positive no acute distress, positive average body habitus - Routine HEENT Exam Head: Present: normocephalic, atraumatic Eye: Present: EOMI, PERRL. Absent: conjunctival icterus, scleral injection ENT: Present: mucous membranes moist, oropharynx clear - Routine Neck Exam Present: supple. Absent: lymphadenopathy, thyromegaly - Routine Respiratory Exam Present: Clear to auscultation bilaterally. Absent: rales, wheezes - Routine Cardiovascular Exam Present: RRR, S1, S2. Absent: murmur - Routine Abdominal Exam Present: soft, normoactive bowel sounds. Absent: tenderness, organomegaly, mass - Routine Extremities Exam Absent: cyanosis, clubbing, edema - Routine Back/Spine Exam Back/Spine: Absent: vertebral tenderness - Routine Skin Exam Present: intact. Absent: petechiae, rash - Routine Neurological Exam Present: alert, oriented X3 - Routine Psychiatric Exam Present: normal affect, normal thought process Results - Labs Laboratory Last Values WBC 7.1 X10^3/uL (4.5-11.0) 06/16/19 14:20 RBC 5.15 X10^6/uL (4.0-5.2) 06/16/19 14:20 Hgb 14.2 g/dL (12.0-16.0) 06/16/19 14:20 Hct 42.5 % (36-46) 06/16/19 14:20 MCV 82.5 fL (80-100) 06/16/19 14:20 MCH 27.5 PG (26-34) 06/16/19 14:20 MCHC 33.3 % (30-36) 06/16/19 14:20 RDW 14.0 % (11.6-14.8) 06/16/19 14:20 Plt Count 179 X10^3/uL (150-400) 06/16/19 14:20 Neut % (Auto) 74.8 % (50-75) 06/16/19 14:20 Lymph % (Auto) 16.5 % (25-40) L 06/16/19 14:20 [place] % (Auto) 6.0 % (3-14) 06/16/19 14:20 Eos % (Auto) 2.3 % (2-4) 06/16/19 14:20 Baso % (Auto) 0.4 % (0-2) 06/16/19 14:20 Neut # (Auto) 5300 /uL (2956-2568) 06/16/19 14:20 Lymph # (Auto) 1200 /uL (7007-1181) 06/16/19 14:20 [place] # (Auto) 400 /uL (0-900) 06/16/19 14:20 Eos # (Auto) 200 /uL (0-450) 06/16/19 14:20 Baso # (Auto) 0 /uL (0-100) 06/16/19 14:20 - Imaging Additional studies: Procedures Colonoscopy (01/22/13) Assessment and Plan (1) Anemia Current visit: Yes Status: Acute 69-year-old woman with a history of iron deficiency anemia that responded to IV iron. Over the ensuing year, her ferritin has dropped a little bit but she has not developed a recurrence of her anemia. I suspect that she is likely require additional iron in the future but it may still be 3-6 months before that is necessary. She does not have any obvious ongoing blood loss. It is possible that she may not be absorbing oral iron very well. She does have an incidentally noted thrombocytopenia without any prior history of thrombocytopenia. We will plan on just rechecking a CBC. If it persists, it may be worth further investigation.
--- NOTE | 2019-08-11 15:52 | P.PNONC_ITS ---
PN -Subjective Interval history: Diagnosis: Iron deficiency anemia Previous treatment: IV iron May 2018. History of present illness: Steven Frances is a 69 year old female with iron deficiency anemia of unknown etiology, diagnosed in 2017. She did not tolerate oral iron due to severe GERD. Eventually, she was treated with intravenous iron. Work-up for ELLI including colonoscopy and stool occult blood test all came back unremarkable. She also denies any apparent clinical history of bleeding. Since last visit with Dr. Kc, she has been on active surveillance. She presents today for scheduled follow up visit. Clinically, patient has been doing well without any new signs or symptoms. Patient is planning to go on a [employer] trip to [facility] [place]. Patient underwent laboratory tests on 08/05/2019. The lab showed WBC 6.7, hemoglobin 14.1, hematocrit 43.4 platelets 181. Iron 127, total iron binding capacity 302, saturation 42% and ferritin level 21.6. Her past medical history is notable for a mild hypothyroidism. She has had a distant history of malaria. She has had a prior hysterectomy and appendectomy. Her family history is negative for malignancy. She believes that her mother had anemia. Social history: She is a retired nurse. She grew up in [place]. She does not smoke. - Patient Self-Reported Symptoms SR Constitution: Fatigue/Malaise - Additional ROS All systems PM: reviewed and no additional remarkable complaints except as stated Home Medications and Allergies Home Medications Medication Instructions Recorded Confirmed Type [CALCIUM] 500 mg Q DAY #0 09/23/11 08/11/19 History polyethylene glycol 3350 [Miralax] 17 gm PO DAILY #0 09/23/11 08/11/19 History cholecalciferol (vitamin D3) 2,000 iu PO QDAY #0 10/01/11 08/11/19 History [Vitamin D3] clotrimazole-betamethasone 1 phong TOPICAL BID #15 gm 08/11/17 08/11/19 Rx [Lotrisone] mecobalamin (vitamin B12) 1,000 1,000 mcg SL 2XW tab 06/10/18 08/11/19 History mcg disintegrating tablet,sublingual cetirizine 10 mg capsule 10 mg PO DAILY cap 12/16/18 08/11/19 History omeprazole 20 mg capsule,delayed 20 mg PO DAILY #90 cap 12/29/18 08/11/19 Rx release estradiol 0.5 mg tablet 0.25 mg PO Q DAY #90 tab 03/29/19 08/11/19 Rx levothyroxine 50 mcg tablet 50 mcg PO DAILY #90 tab 03/29/19 08/11/19 Rx amitriptyline 12.5 mg PO HS 06/16/19 08/11/19 History ranitidine HCl 150 mg PO DAILY 06/16/19 08/11/19 History mefloquine 250 mg tablet See Rx Instructions PO QWEEK #8 tab 08/05/19 08/11/19 Rx triamcinolone acetonide 0 % TOPICAL BID 08/11/19 08/11/19 History Allergies Allergy/AdvReac Type Severity Reaction Status Date / Time codeine Allergy Mild BRADYCARDIA Verified 12/16/18 14:29 epinephrine Allergy Mild Verified 12/16/18 14:29 erythromycin base Allergy Mild GI UPSET Verified 12/16/18 14:29 Cephalosporins AdvReac Rash Verified 06/16/19 13:33 Exam Vital signs: Last Vital Signs Temp 97.4 F L 08/11/19 16:33 Pulse 72 08/11/19 16:33 Resp 18 08/11/19 16:33 BP 133/70 08/11/19 16:33 Pulse Ox 98 08/11/19 16:33 - Constitutional positive no acute distress, positive average body habitus, positive cooperative - Routine HEENT Exam Head: Present: normocephalic, atraumatic Eye: Present: EOMI, PERRL, normal accommodation. Absent: conjunctival icterus ENT: Present: mucous membranes moist - Routine Neck Exam Present: supple. Absent: lymphadenopathy, thyromegaly, swelling - Routine Chest/Breast/Axilla Exam Axillae: Absent: lymphadenopathy - Routine Respiratory Exam Present: Clear to auscultation bilaterally. Absent: stridor, wheezes, crackles - Routine Cardiovascular Exam Present: RRR, S1, S2. Absent: murmur, gallop, rubs - Routine Abdominal Exam Present: soft. Absent: tenderness, distended, organomegaly, hernia - Routine Extremities Exam Absent: edema - Routine Neurological Exam Present: alert, oriented X3, CN II-XII intact, normal tone, normal speech. Absent: sensory deficit, motor deficit - Routine Psychiatric Exam Present: normal affect Results - Labs See HPI - Imaging Additional studies: Procedures Colonoscopy (01/22/13) Assessment and Plan (1) Anemia 69-year-old woman with iron deficiency anemia of unknown etiology. Her ELLI responded to IV iron. Today, I reviewed the lab tests with the patient. Compared to April of 2019, patient has shown and very stable hemoglobin and hematocrit level. MCV also has remained stable. The iron studies indicated stable iron saturation and ferritin level. I will continue current active surveillance. As far as the etiology is concerned, I am suspicious that patient may have absorption problems. Patient voiced understanding. I have scheduled the patient to come back in about 6 months follow-up visit. I will repeat CBC, CMP and iron panels.
[2019-08-11 16:33] VITALS: BP 133/70; PULSE 72; RESP 18; TEMP 36.3; O2SAT 98
[2020-01-13 20:26] LABS: HEMOLYSIS < 15 (0-50); Iron 130 ug/dL (37-170)
[2020-01-13 20:37] LABS: Percent Iron Saturation 45 % (15-50); Total Iron Binding Capacity 292 ug/dL (265-497); Transferrin 256 mg/dL (206-381)
[2020-01-13 20:43] LABS: Free T3, Triiodothyronine Free 2.67 pg/mL (2.77-5.27); Free T4, Direct Thyroxine 0.99 ng/dL (0.78-2.19)
[2020-01-13 20:56] LABS: Thyroid Stimulating Hormone 1.49 uIU/mL (0.47-4.68)
[2020-01-13 20:59] LABS: Ferritin 21 ng/mL (11-264)
== END ==
PROVIDERS: Internal Medicine Hematology & Oncology; PCP Family Medicine; Referring Provider Family Medicine
DX: D50.9 Iron deficiency anemia, unspecified (principal); E03.9 Hypothyroidism, unspecified
CPT/HCPCS: 36415; 82728; 83540; 83550; 84439; 84443; 84481; 85025; 99204; 99214

== ENCOUNTER → 2020-04-27 16:12 | Outpatient (CLI) | payer MEDICARE, OTHER, SELFPAY ==
[2020-04-27 16:45] LABS: Add Manual Diff / Slide Review NO; Basophils Absolute Auto 0 /uL (0-100); Basophils Percent Auto 0.6 % (0-2); Eosinophils Absolute Auto 300 /uL (0-450); Eosinophils Percent Auto 3.7 % (2-4); Hematocrit 42.9 % (36-46); Hemoglobin 14.4 g/dL (12.0-16.0); Lymphocytes Absolute Auto 2000 /uL (1100-4500); Lymphocytes Percent Auto 27.2 % (25-40); Mean Corpuscular HGB Conc 33.5 % (30-36); Mean Corpuscular Hemoglobin 27.8 PG (26-34); Monocytes Absolute Auto 500 /uL (0-900); Neutrophils Absolute Auto 4400 /uL (1500-7000); Neutrophils Percent Auto 61.5 % (50-75); Platelet Count 172 X10^3/uL (150-400); Red Blood Cell Count 5.17 X10^6/uL (4.0-5.2); Red Cell Distribution Width 13.6 % (11.6-14.8); White Blood Cell Count 7.2 X10^3/uL (4.5-11.0)
[2020-04-27 17:15] LABS: Free T4, Direct Thyroxine 1.05 ng/dL (0.78-2.19)
== END ==
PROVIDERS: PCP Family Medicine; Referring Provider Family Medicine; Visit Provider Family Medicine
DX: D64.9 Anemia, unspecified (principal); E03.9 Hypothyroidism, unspecified
CPT/HCPCS: 36415; 84439; 84443; 84481; 85025

== ENCOUNTER → 2020-11-10 14:07 | Outpatient (CLI) | payer MEDICARE, OTHER, SELFPAY ==
[2020-11-10 14:41] LABS: Add Manual Diff / Slide Review NO; Basophils Absolute Auto 0 /uL (0-100); Basophils Percent Auto 0.6 % (0-2); Eosinophils Absolute Auto 300 /uL (0-450); Eosinophils Percent Auto 3.8 % (2-4); Hematocrit 43.8 % (36-46); Hemoglobin 14.2 g/dL (12.0-16.0); Lymphocytes Absolute Auto 1700 /uL (1100-4500); Mean Corpuscular HGB Conc 32.4 % (30-36); Mean Corpuscular Hemoglobin 27.2 PG (26-34); Mean Corpuscular Volume 83.7 fL (80-100); Monocytes Absolute Auto 500 /uL (0-900); Monocytes Percent Auto 7.9 % (3-14); Neutrophils Absolute Auto 4200 /uL (1500-7000); Neutrophils Percent Auto 62.7 % (50-75); Platelet Count 168 X10^3/uL (150-400); Red Blood Cell Count 5.23 X10^6/uL (4.0-5.2); Red Cell Distribution Width 13.5 % (11.6-14.8); White Blood Cell Count 6.7 X10^3/uL (4.5-11.0)
[2020-11-10 14:57] LABS: Alanine Aminotransferase 18 IU/L (<35); Albumin 4.2 g/dL (3.5-5.0); Albumin Globulin Ratio 1.4 (1.0-2.8); Alkaline Phosphatase 76 U/L (38-126); Aspartate Aminotransferase 31 IU/L (14-36); BUN Creatinine Ratio 32.1 (6-22); Bilirubin Total 0.5 mg/dL (0.2-1.3); Blood Urea Nitrogen 25 mg/dL (7-17); Calcium 9.7 mg/dL (8.4-10.2); Carbon Dioxide 36 mmol/L (22-32); Chloride 103 mmol/L (98-107); Cholesterol 228 mg/dL (140-199); Estimated Glomerular Filt Rate > 60.0 mL/min (>60); Glucose 96 mg/dL (80-110); HDL Cholesterol 66 mg/dL (40-60); HEMOLYSIS < 15 (0-50); LDL Cholesterol Calculated 142 mg/dL (<100); Potassium 3.8 mmol/L (3.4-5.1); Sodium 140 mmol/L (137-145); Total Protein 7.2 g/dL (6.3-8.2); Triglycerides 102 mg/dL (35-150)
[2020-11-10 15:05] LABS: HEMOLYSIS < 15 (0-50); Iron 133 ug/dL (37-170)
[2020-11-10 15:15] LABS: Percent Iron Saturation 42 % (15-50); Total Iron Binding Capacity 317 ug/dL (265-497); Transferrin 244 mg/dL (206-381)
[2020-11-10 15:23] LABS: Free T3, Triiodothyronine Free 2.91 pg/mL (2.77-5.27); Free T4, Direct Thyroxine 1.19 ng/dL (0.78-2.19)
[2020-11-10 15:31] LABS: Ferritin 19 ng/mL (11-264)
[2020-11-10 15:37] LABS: Thyroid Stimulating Hormone 1.83 uIU/mL (0.47-4.68)
== END ==
PROVIDERS: PCP Family Medicine; Referring Provider Family Medicine; Visit Provider Family Medicine
DX: D50.0 Iron deficiency anemia secondary to blood loss (chronic) (principal); D64.9 Anemia, unspecified; E05.90 Thyrotoxicosis, unspecified without thyrotoxic crisis or storm; E78.5 Hyperlipidemia, unspecified; I10 Essential (primary) hypertension; E03.9 Hypothyroidism, unspecified
CPT/HCPCS: 36415; 80053; 80061; 82728; 83540; 83550; 84439; 84443; 84481; 85025

== ENCOUNTER → 2020-12-20 15:10 | Outpatient (CLI) | payer MEDICARE, OTHER, SELFPAY ==
--- NOTE | 2020-12-20 15:11 | DI.MG.S_ITS ---
BILATERAL DIGITAL SCREENING MAMMOGRAM 3D/2D WITH CAD: 12/20/2020 CLINICAL: Routine screening. Comparison is made to exams dated: 12/14/2019 mammogram, 12/04/2018 mammogram, and 09/26/2017 mammogram - [facility]. The tissue of both breasts is heterogeneously dense. This may lower the sensitivity of mammography. Current study was also evaluated with a Computer Aided Detection (CAD) system. There are benign calcifications in both breasts. There also are benign vascular calcifications in the right breast. No significant masses, calcifications, or other findings are seen in either breast. There has been no significant interval change. IMPRESSION: BENIGN There is no mammographic evidence of malignancy. A 1 year screening mammogram is recommended. This exam was interpreted at Station ID: [id number]. NOTE: For mammograms, a report in lay terms will be sent to the patient. Approximately 15% of breast malignancies will not be visualized mammographically. In the management of a palpable breast mass, a negative mammogram must not discourage biopsy of a clinically suspicious lesion. Electronically Signed By: Aubrey Mckeon M.D., jr/pedrito:12/20/2020 16:32:06 copy to: Antonella Robles letter sent: Normal Exam ACR BI-RADS Category 2: Benign Finding(s) 3342F
== END ==
PROVIDERS: PCP Family Medicine; Referring Provider Family Medicine; Visit Provider Family Medicine
DX: Z12.31 Encounter for screening mammogram for malignant neoplasm of breast (principal); M81.0 Age-related osteoporosis without current pathological fracture; Z78.0 Asymptomatic menopausal state; Z82.62 Family history of osteoporosis
CPT/HCPCS: 77063; 77067; 77080

== ENCOUNTER → 2021-01-05 16:11 | Outpatient (CLI) | payer MEDICARE, OTHER, SELFPAY ==
[2021-01-05 18:11] LABS: Vitamin D 25 Hydroxy (D3) 62.6 ng/mL (30.0-100.0)
== END ==
PROVIDERS: PCP Family Medicine; Referring Provider Family Medicine; Visit Provider Family Medicine
DX: M81.0 Age-related osteoporosis without current pathological fracture (principal)
CPT/HCPCS: 36415; 82306

== ENCOUNTER → 2021-05-15 15:20 | Outpatient (CLI) | payer MEDICARE, OTHER, SELFPAY ==
[2021-05-15 16:43] LABS: HEMOLYSIS < 15 (0-50); Iron 138 ug/dL (37-170)
[2021-05-15 16:49] LABS: Hematocrit 42.3 % (36-46); Hemoglobin 13.8 g/dL (12.0-16.0); Mean Corpuscular HGB Conc 32.5 % (30-36); Mean Corpuscular Hemoglobin 27.3 PG (26-34); Mean Corpuscular Volume 83.9 fL (80-100); Platelet Count 167 X10^3/uL (150-400); Red Blood Cell Count 5.04 X10^6/uL (4.0-5.2); Red Cell Distribution Width 13.7 % (11.6-14.8); White Blood Cell Count 7.4 X10^3/uL (4.5-11.0)
[2021-05-15 16:54] LABS: Percent Iron Saturation 44 % (15-50); Total Iron Binding Capacity 317 ug/dL (265-497); Transferrin 252 mg/dL (206-381)
[2021-05-15 17:17] LABS: TSH w/ Reflex to FT4 1.23 uIU/mL (0.47-4.68)
[2021-05-15 17:19] LABS: Ferritin 18 ng/mL (11-264)
[2021-05-15 17:34] LABS: Neutrophils Absolute Manual 4884 /uL (3000-5900); RBC Morphology Normal Morphology; Total Cells Counted 100
== END ==
PROVIDERS: PCP Family Medicine; Referring Provider Family Medicine; Visit Provider Family Medicine
DX: D50.0 Iron deficiency anemia secondary to blood loss (chronic) (principal); E03.9 Hypothyroidism, unspecified
CPT/HCPCS: 36415; 82728; 83540; 83550; 84443; 85025

== ENCOUNTER → 2021-12-04 11:58 | Outpatient (CLI) | payer MEDICARE, OTHER, SELFPAY ==
[2021-12-04 12:51] LABS: Add Manual Diff / Slide Review NO; Basophils Absolute Auto 0 /uL (0-100); Basophils Percent Auto 0.6 % (0-2); Eosinophils Absolute Auto 200 /uL (0-450); Eosinophils Percent Auto 3.2 % (2-4); Hematocrit 42.4 % (36-46); Hemoglobin 13.9 g/dL (12.0-16.0); Lymphocytes Absolute Auto 1900 /uL (1100-4500); Lymphocytes Percent Auto 27.2 % (25-40); Mean Corpuscular HGB Conc 32.9 % (30-36); Mean Corpuscular Hemoglobin 27.6 PG (26-34); Mean Corpuscular Volume 84.1 fL (80-100); Monocytes Absolute Auto 600 /uL (0-900); Monocytes Percent Auto 8.7 % (3-14); Neutrophils Absolute Auto 4300 /uL (1500-7000); Neutrophils Percent Auto 60.3 % (50-75); Platelet Count 177 X10^3/uL (150-400); Red Blood Cell Count 5.04 X10^6/uL (4.0-5.2); Red Cell Distribution Width 13.7 % (11.6-14.8); White Blood Cell Count 7.1 X10^3/uL (4.5-11.0)
[2021-12-04 13:07] LABS: Alanine Aminotransferase 23 IU/L (<35); Albumin 4.3 g/dL (3.5-5.0); Albumin Globulin Ratio 1.5 (1.0-2.8); Alkaline Phosphatase 75 U/L (38-126); Aspartate Aminotransferase 35 IU/L (14-36); BUN Creatinine Ratio 28.2 (6-22); Bilirubin Total 0.5 mg/dL (0.2-1.3); Blood Urea Nitrogen 24 mg/dL (7-17); Calcium 9.8 mg/dL (8.4-10.2); Carbon Dioxide 33 mmol/L (22-32); Chloride 102 mmol/L (98-107); Cholesterol 232 mg/dL (140-199); Estimated Glomerular Filt Rate > 60.0 mL/min (>60); Globulin 2.9 g/dL (1.7-4.1); Glucose 98 mg/dL (80-110); HDL Cholesterol 75 mg/dL (40-60); HEMOLYSIS < 15 (0-50); LDL Cholesterol Calculated 136 mg/dL (<100); Potassium 3.9 mmol/L (3.4-5.1); Sodium 140 mmol/L (137-145); Total Protein 7.2 g/dL (6.3-8.2); Triglycerides 107 mg/dL (35-150)
[2021-12-04 13:38] LABS: TSH w/ Reflex to FT4 3.58 uIU/mL (0.47-4.68)
== END ==
PROVIDERS: PCP Family Medicine; Referring Provider Family Medicine; Visit Provider Family Medicine
DX: D50.0 Iron deficiency anemia secondary to blood loss (chronic) (principal); E78.00 Pure hypercholesterolemia, unspecified; E03.9 Hypothyroidism, unspecified; M81.0 Age-related osteoporosis without current pathological fracture
CPT/HCPCS: 36415; 80053; 80061; 84443; 85025

== ENCOUNTER → 2022-01-01 15:42 | Outpatient (CLI) | payer MEDICARE, OTHER, SELFPAY ==
--- NOTE | 2022-01-01 | DI.MG.S_ITS ---
BILATERAL DIGITAL SCREENING MAMMOGRAM 3D/2D WITH CAD: 01/01/2022 CLINICAL: Routine screening. Comparison is made to exams dated: 12/20/2020 mammogram, 12/14/2019 mammogram, and 12/04/2018 mammogram - [facility]. The tissue of both breasts is heterogeneously dense. This may lower the sensitivity of mammography. Current study was also evaluated with a Computer Aided Detection (CAD) system. There are benign calcifications in both breasts. There also are benign vascular calcifications in the right breast. No significant masses, calcifications, or other findings are seen in either breast. There has been no significant interval change. IMPRESSION: BENIGN There is no mammographic evidence of malignancy. A 1 year screening mammogram is recommended. This exam was interpreted at Station ID: [id number]. NOTE: For mammograms, a report in lay terms will be sent to the patient. Approximately 15% of breast malignancies will not be visualized mammographically. In the management of a palpable breast mass, a negative mammogram must not discourage biopsy of a clinically suspicious lesion. Electronically Signed By: Chuy ramírez/pedrito:01/02/2022 08:02:07 copy to: Antonella Robles letter sent: Normal Exam ACR BI-RADS Category 2: Benign Finding(s) 3342F
== END ==
PROVIDERS: PCP Family Medicine; Referring Provider Family Medicine; Visit Provider Family Medicine
DX: Z12.31 Encounter for screening mammogram for malignant neoplasm of breast (principal)
CPT/HCPCS: 77063; 77067

== ENCOUNTER → 2022-02-22 14:27 | Outpatient (CLI) | payer MEDICARE, OTHER, SELFPAY ==
[2022-02-22 16:30] LABS: TSH w/ Reflex to FT4 0.46 uIU/mL (0.47-4.68)
[2022-02-22 16:59] LABS: Free T4, Direct Thyroxine 1.36 ng/dL (0.78-2.19)
== END ==
PROVIDERS: PCP Family Medicine; Referring Provider Family Medicine; Visit Provider Family Medicine
DX: E03.9 Hypothyroidism, unspecified (principal)
CPT/HCPCS: 36415; 84439; 84443

== ENCOUNTER → 2022-04-24 16:18 | Outpatient (CLI) | payer MEDICARE, OTHER, SELFPAY ==
[2022-04-24 18:16] LABS: Free T3, Triiodothyronine Free 3.27 pg/mL (2.77-5.27); Free T4, Direct Thyroxine 1.19 ng/dL (0.78-2.19)
[2022-04-24 18:30] LABS: Thyroid Stimulating Hormone 1.26 uIU/mL (0.47-4.68)
[2022-04-24 19:13] LABS: Microalbumin Urine Random < 0.6 mg/dL (0-1.6)
== END ==
PROVIDERS: PCP Family Medicine; Referring Provider Family Medicine; Visit Provider Family Medicine
DX: E03.8 Other specified hypothyroidism (principal); E06.3 Autoimmune thyroiditis; I10 Essential (primary) hypertension
CPT/HCPCS: 36415; 82043; 82570; 84439; 84443; 84481

== ENCOUNTER → 2023-01-30 14:44 | Outpatient (CLI) | payer MEDICARE, OTHER, SELFPAY ==
--- NOTE | 2023-01-30 14:46 | DI.MG.S_ITS ---
BILATERAL DIGITAL SCREENING MAMMOGRAM 3D/2D WITH CAD: 01/30/2023 CLINICAL: Routine screening. Comparison is made to exams dated: 01/01/2022 mammogram, 12/20/2020 mammogram, 12/14/2019 mammogram, and 12/04/2018 mammogram - [facility]. Both breasts are heterogeneously dense, which may obscure small masses (category c / 51-75% glandular tissue). Current study was also evaluated with a Computer Aided Detection (CAD) system. There is an asymmetry with an obscured margin in the left breast posterior depth superior region seen on the mediolateral oblique view only. No other significant masses, calcifications, or other findings are seen in either breast. IMPRESSION: INCOMPLETE: NEEDS ADDITIONAL IMAGING EVALUATION The asymmetry in the left breast is indeterminate. Additional views with possible ultrasound are recommended. Based on the Tyrer Cuzick model (a risk assessment model) the patient's lifetime risk is 3.5% and her 10 year risk is 2.9%. According to the ACR, ACS, and NCCN guidelines, an annual breast MRI exam along with mammogram is recommended if the patient's lifetime risk is 20% or greater. This exam was interpreted at Station ID: [id number]. NOTE: For mammograms, a report in lay terms will be sent to the patient. Approximately 15% of breast malignancies will not be visualized mammographically. In the management of a palpable breast mass, a negative mammogram must not discourage biopsy of a clinically suspicious lesion. Electronically Signed By: Eros Tobar M.D. slc/:01/30/2023 16:03:15 copy to: Antonella Robles letter sent: Additional Imaging Needed ACR BI-RADS Category 0: Incomplete 3340F
--- NOTE | 2023-01-30 15:16 | DI.DEXA.S_ITS ---
Indication: osteopenia; parental hip fracture; Referring Provider: FERMIN PERRIN Study: Bone densitometry was performed. Exam Date: January 30, 2023 Accession number: [id number] Bone Density: Region BMD T-score Z-score Classification Femoral Neck (Left) 0.667 -1.6 0.4 Osteopenia Total Hip (Left) 0.771 -1.4 0.3 Osteopenia Femoral Neck (Right) 0.665 -1.7 0.4 Osteopenia Total Hip (Right) 0.746 -1.6 0.1 Osteopenia Total Hip Mean 0.759 -1.5 0.2 Osteopenia Total Forearm (Left) 0.506 -1.3 1.0 Osteopenia 1/3 Forearm (Left) 0.604 -1.5 0.9 Osteopenia UD Forearm (Left) 0.343 -1.7 0.0 Osteopenia World Health Organization criteria for BMD impression classify patients as: Normal (T-score at or above -1.0), Osteopenia (T-score between -1.0 and -2.5), or Osteoporosis (T-score at or below -2.5). 10-year Fracture Risk(1): Major Osteoporotic Fracture 19% Hip Fracture 8.1% Reported Risk Factors: [place] (), Neck BMD=0.667, BMI=25.2, parental fracture (1) FRAX(R) Version 3.08. Fracture probability calculated for an untreated patient. Fracture probability may be lower if the patient has received treatment. Previous Exams: -- Region Exam Age BMD T-score BMD Change BMD Change Date g/cm2 vs Baseline vs Previous -- Total Hip(Left) 01/30/2023 72 0.771 -1.4 0.036 (4.8%)# 0.036 (4.8%)# 12/20/2020 70 0.736 -1.7 Total Hip(Right) 01/30/2023 72 0.746 -1.6 0.032 (4.4%)# 0.032 (4.4%)# 12/20/2020 70 0.714 -1.9 -- *Denotes significance at 95% confidence level, LSC for Total Hip = 0.027 g/cm2 # Denotes dissimilar scan types or analysis methods Impression: The patient has low bone mass, based on the Right Femoral Neck T-score. The patient has an estimated ten-year risk of hip fracture of 8.1% and an estimated ten-year risk of major fracture of 19%, based on the WHO FRAX algorithm. The patient has risk factors, including: parental hip fracture. No significant bone loss was observed. Discussion: BONE DENSITY IS LOW AT ONE OR MORE SKELETAL SITES. THE PATIENT'S BMD AND CLINICAL RISK FACTORS CONTRIBUTE TO THIS PATIENT'S INCREASED RISK OF FRACTURE. This patient's lowest T-score is low at one or more skeletal sites. It meets the World Health Organization's (WHO) criteria for ?low bone mass? (T-score between -1.0 and -2.5). The patient's 10-year risk of hip fracture as calculated by FRAX exceeds the threshold where pharmacological therapy is recommended by the National Osteoporosis Foundation (NOF). However, all treatment decisions require clinical judgment and consideration of individual patient factors, including patient preferences, comorbidities, previous drug use, risk factors not captured in the FRAX model (e.g., frailty, falls, vitamin D deficiency, increased bone turnover, interval significant decline in bone density) and possible under or overestimation of fracture risk by FRAX. The patient should follow a healthful lifestyle (good nutrition with adequate calcium and vitamin D, and appropriate weight-bearing exercise). Follow-Up: Consider a repeat BMD and Vertebral Fracture Assessment (VFA) exam in 2 years or sooner if medically necessary, to reassess this patient's status. Reported by: Lisbet Meyers M.D. on 01/30/2023 3:29:00 PM.
== END ==
PROVIDERS: PCP Family Medicine; Referring Provider Family Medicine; Visit Provider Family Medicine
DX: Z12.31 Encounter for screening mammogram for malignant neoplasm of breast; M85.851 Other specified disorders of bone density and structure, right thigh; Z78.0 Asymptomatic menopausal state; Z92.23 Personal history of estrogen therapy; Z90.710 Acquired absence of both cervix and uterus
CPT/HCPCS: 77063; 77067; 77080; 77081

== ENCOUNTER → 2023-02-20 12:04 | Outpatient (CLI) | payer MEDICARE, OTHER, SELFPAY ==
--- NOTE | 2023-02-20 | DI.MG.S_ITS ---
UNILATERAL LEFT DIGITAL DIAGNOSTIC MAMMOGRAM 3D/2D WITH ADDITIONAL VIEWS: 02/20/2023 CLINICAL: Additional evaluation requested from prior study. Comparison is made to exams dated: 01/30/2023 mammogram, 01/01/2022 mammogram, and 12/20/2020 mammogram - [facility]. The left breast is heterogeneously dense, which may obscure small masses (category c / 51-75% glandular tissue). Additional mammographic imaging reveals prior asymmetry seen in the left breast at 3 o'clock is no longer present or is now obscured by tissue. No suspicious mammogram findings. No significant masses, calcifications, or other findings are seen in the breast. IMPRESSION: INCOMPLETE: NEEDS ADDITIONAL IMAGING EVALUATION Resolution of screening mammography abnormality with additional views. Ultrasound evaluation to confirm resolution is recommended and was performed immediately following this exam. Based on the Tyrer Cuzick model (a risk assessment model) the patient's lifetime risk is 3.5% and her 10 year risk is 2.9%. According to the ACR, ACS, and NCCN guidelines, an annual breast MRI exam along with mammogram is recommended if the patient's lifetime risk is 20% or greater. This exam was interpreted at Station ID: [id number]. NOTE: For mammograms, a report in lay terms will be sent to the patient. Approximately 15% of breast malignancies will not be visualized mammographically. In the management of a palpable breast mass, a negative mammogram must not discourage biopsy of a clinically suspicious lesion. Electronically Signed By: Jessica mena/:02/20/2023 12:31:40 copy to: Antonella Robles ACR BI-RADS Category 0: Incomplete 3340F
--- NOTE | 2023-02-20 | DI.US.S_ITS ---
LIMITED ULTRASOUND OF LEFT BREAST: 02/20/2023 CLINICAL: Patient returns today to evaluate a focal asymmetry in the left breast. Comparison is made to exams dated: 02/20/2023 mammogram, 01/30/2023 mammogram, 01/01/2022 mammogram, and 12/20/2020 mammogram - [facility]. Color flow ultrasound of the left breast 3 o'clock region was performed. Russell scale images of the real-time examination were reviewed. There is a 0.4 cm round cyst in the left breast at 3 o'clock middle depth. This round cyst is hypoechoic with posterior acoustic enhancement. This correlates smaller than estimated on mammography and closer to the nipple than anticipated. Color flow imaging demonstrates that there is no vascularity present. This may not correlate to the screening mammogram finding. There are no other potential sonographic correlates to the resolved screening mammographic abnormality. IMPRESSION: PROBABLY BENIGN The round cyst in the left breast most likely is a complicated cyst and is probably benign. A follow-up left mammogram and an ultrasound in 6 months is recommended to demonstrate stability. Findings and recommendations were conveyed to the patient at time of exam. This exam was interpreted at Station ID: [id number]. Electronically Signed By: Jessica mena/:02/20/2023 13:49:43 copy to: Antonella Robles letter sent: Followup Recommended Ultrasound BI-RADS: 3 Probably benign
== END ==
PROVIDERS: PCP Family Medicine; Referring Provider Family Medicine; Visit Provider Family Medicine
DX: R92.8 Other abnormal and inconclusive findings on diagnostic imaging of breast (principal); N60.02 Solitary cyst of left breast
CPT/HCPCS: 76642; 77065; G0279

== ENCOUNTER → 2023-03-06 12:37 | Outpatient (CLI) | payer MEDICARE, OTHER, SELFPAY ==
[2023-03-06 13:31] LABS: Hematocrit 41.8 % (36-46); Hemoglobin 13.8 g/dL (12.0-16.0); Mean Corpuscular Hemoglobin 27.5 PG (26-34); Mean Corpuscular Volume 83.5 fL (80-100); Platelet Count 146 X10^3/uL (150-400); Red Cell Distribution Width 14.2 % (11.6-14.8); White Blood Cell Count 6.3 X10^3/uL (4.5-11.0)
[2023-03-06 14:10] LABS: BUN Creatinine Ratio 30.7 (6-22); Blood Urea Nitrogen 23 mg/dL (7-17); Calcium 9.7 mg/dL (8.4-10.2); Carbon Dioxide 30 mmol/L (22-32); Chloride 100 mmol/L (98-107); Estimated Glomerular Filt Rate > 60 mL/min (>60); Glucose 94 mg/dL (80-110); HEMOLYSIS 21 (0-50); Sodium 137 mmol/L (137-145)
[2023-03-06 14:23] LABS: Vitamin D 25 Hydroxy (D3) 76.6 ng/mL (30.0-100.0)
[2023-03-06 14:37] LABS: Thyroid Stimulating Hormone 1.51 uIU/mL (0.47-4.68)
[2023-03-06 14:43] LABS: Ferritin 24 ng/mL (11-264)
== END ==
PROVIDERS: PCP Family Medicine; Referring Provider Family Medicine; Visit Provider Family Medicine
DX: E03.8 Other specified hypothyroidism (principal); D50.0 Iron deficiency anemia secondary to blood loss (chronic); M81.0 Age-related osteoporosis without current pathological fracture; E06.3 Autoimmune thyroiditis; E78.00 Pure hypercholesterolemia, unspecified
CPT/HCPCS: 36415; 80048; 82306; 82728; 84443; 85027

== ENCOUNTER → 2023-10-06 13:22 | Outpatient (CLI) | payer MEDICARE, OTHER, SELFPAY ==
--- NOTE | 2023-10-06 13:25 | DI.MG.S_ITS ---
UNILATERAL LEFT DIGITAL DIAGNOSTIC MAMMOGRAM 3D/2D: 10/06/2023 CLINICAL: Short term follow up. Comparison is made to exams dated: 02/20/2023 mammogram, 01/30/2023 mammogram, 01/01/2022 mammogram, and 12/20/2020 mammogram - . The left breast is heterogeneously dense, which may obscure small masses (category c / 51-75% glandular tissue). The asymmetry seen on prior screening mammogram 01/30/2023 is again not seen today's exam. No significant masses, calcifications, or other findings are seen in the breast. IMPRESSION: INCOMPLETE: NEEDS ADDITIONAL IMAGING EVALUATION No mammographic evidence of malignancy. Recommend targeted left breast ultrasound for further evaluation of probably benign finding seen on ultrasound 02/20/2023. Based on the Tyrer Cuzick model (a risk assessment model) the patient's lifetime risk is 3.3% and her 10 year risk is 3.0%. According to the ACR, ACS, and NCCN guidelines, an annual breast MRI exam along with mammogram is recommended if the patient's lifetime risk is 20% or greater. This exam was interpreted at Station ID: [id number]. NOTE: For mammograms, a report in lay terms will be sent to the patient. Approximately 15% of breast malignancies will not be visualized mammographically. In the management of a palpable breast mass, a negative mammogram must not discourage biopsy of a clinically suspicious lesion. Electronically Signed By: Shanique Snowden M.D., PH.D eb/:10/06/2023 14:05:21 copy to: Antonella Robles ACR BI-RADS Category 0: Incomplete [id number]
--- NOTE | 2023-10-06 13:25 | DI.US.S_ITS ---
LIMITED ULTRASOUND OF LEFT BREAST: 10/06/2023 CLINICAL: Patient returns today to evaluate a focal asymmetry in the left breast. Comparison is made to exams dated: 10/06/2023 mammogram, 02/20/2023 ultrasound, 02/20/2023 mammogram, 01/30/2023 mammogram, 01/01/2022 mammogram, and 12/20/2020 mammogram - [facility]. Color flow and real-time ultrasound of the left breast 3 o'clock region were performed. There is an oval hypoechoic mass with circumscribed margins measuring 0.4 x 0.2 x 0.3 cm at 3 o'clock, 5 cm from the nipple. This mass is unchanged since prior ultrasound 02/20/2023. IMPRESSION: PROBABLY BENIGN Left breast 0.4 cm oval circumscribed mass at 3 o'clock, stable since 02/20/2023. Finding may represent a complicated cyst and is probably benign. Recommend follow-up ultrasound in 6 months to demonstrate 1 year stability. Patient will be due for bilateral mammogram at that time. Findings and recommendations were conveyed to the patient during today's evaluation. This exam was interpreted at Station ID: [id number]. Electronically Signed By: Shanique Snowden M.D., PH.D eb/:10/07/2023 01:23:36 copy to: Antonella Robles letter sent: Followup Recommended Ultrasound BI-RADS: 3 Probably benign
== END ==
PROVIDERS: PCP Family Medicine; Referring Provider Family Medicine; Visit Provider Family Medicine
DX: R92.8 Other abnormal and inconclusive findings on diagnostic imaging of breast (principal); N63.25 Unspecified lump in the left breast, overlapping quadrants
CPT/HCPCS: 76642; 77065; G0279

== ENCOUNTER → 2024-02-02 13:00 | Outpatient (CLI) | payer MEDICARE, OTHER, SELFPAY ==
--- NOTE | 2024-02-02 13:02 | DI.US.S_ITS ---
LIMITED ULTRASOUND OF LEFT BREAST AND AXILLA: 02/02/2024 CLINICAL: 6 month follow-up of cysts. Comparison is made to exams dated: 02/02/2024 mammogram, 10/06/2023 ultrasound, 10/06/2023 mammogram, 02/20/2023 ultrasound, 02/20/2023 mammogram, and 01/30/2023 mammogram - [facility]. Color flow ultrasound of the left breast axilla was performed on the areas of interest. Russell scale images of the real-time examination were reviewed. There is a stable round cyst in the left breast at 3 o'clock middle depth. This round cyst is anechoic with posterior acoustic enhancement. This correlates smaller than estimated on mammography. Color flow imaging demonstrates that there is no vascularity present. IMPRESSION: BENIGN There is no sonographic evidence of malignancy. The stable round cyst in the left breast is consistent with a simple cyst and is benign. Return to annual mammogram screening schedule is recommended. This exam was interpreted at Station ID: [id number]. Electronically Signed By: Vanesa Wood M.D. lk/:02/02/2024 14:42:53 copy to: Antonella Robles letter sent: Normal Exam Ultrasound BI-RADS: 2 Benign
--- NOTE | 2024-02-02 13:02 | DI.MG.S_ITS ---
BILATERAL DIGITAL DIAGNOSTIC MAMMOGRAM 3D/2D SHORT-TERM FOLLOW-UP: 02/02/2024 CLINICAL: Short term follow up of the left breast, due for bilateral imaging. Comparison is made to exams dated: 10/06/2023 mammogram, 02/20/2023 mammogram, 01/30/2023 mammogram, and 01/01/2022 mammogram - [facility]. Both breasts are heterogeneously dense, which may obscure small masses (category c / 51-75% glandular tissue). There is a stable asymmetry in the left breast middle depth lateral region seen on the craniocaudal view only. No other significant masses, calcifications, or other findings are seen in either breast. IMPRESSION: INCOMPLETE: NEEDS ADDITIONAL IMAGING EVALUATION The stable asymmetry in the left breast likely represents the previously seen complicated cyst and is indeterminate. A targeted ultrasound of the left breast is recommended and will be performed immediately following this exam. Based on the Tyrer Cuzick model (a risk assessment model) the patient's lifetime risk is 3.3% and her 10 year risk is 3.0%. According to the ACR, ACS, and NCCN guidelines, an annual breast MRI exam along with mammogram is recommended if the patient's lifetime risk is 20% or greater. This exam was interpreted at Station ID: [id number]. NOTE: For mammograms, a report in lay terms will be sent to the patient. Approximately 15% of breast malignancies will not be visualized mammographically. In the management of a palpable breast mass, a negative mammogram must not discourage biopsy of a clinically suspicious lesion. Electronically Signed By: Vanesa Wood M.D. lk/:02/02/2024 14:11:31 copy to: Antonella Robles ACR BI-RADS Category 0: Incomplete [id number]
== END ==
LOC: MAMMO 13:01
PROVIDERS: PCP Family Medicine; Referring Provider Family Medicine; Visit Provider Family Medicine
DX: R92.8 Other abnormal and inconclusive findings on diagnostic imaging of breast (principal); R92.333 Mammographic heterogeneous density, bilateral breasts; N60.02 Solitary cyst of left breast
CPT/HCPCS: 76642; 77066; G0279

== ENCOUNTER → 2024-02-23 15:53 | Outpatient (CLI) | payer MEDICARE, OTHER, SELFPAY ==
--- NOTE | 2024-02-23 15:56 | DI.RAD.S_ITS ---
PROCEDURE: XR HIP W PEL IF DONE LT 2V INDICATIONS: left hip pain TECHNIQUE: Frontal view of the pelvis and frogleg view of the left hip were acquired. COMPARISON: None. FINDINGS: Bones: No fractures or dislocations. No suspicious bony lesions. The visualized pelvic ring appears intact. Partially visualized posterior spinal fusion hardware of the lower lumbar spine is noted with an intervertebral spacer. Soft tissues: No suspicious soft tissue calcifications or masses. IMPRESSION: No acute bony abnormality. Dictated by: Florencio Guzman M.D. on 02/23/2024 at 16:25 Approved by: Florencio Guzman M.D. on 02/23/2024 at 16:26
== END ==
PROVIDERS: PCP Family Medicine; Referring Provider Family Medicine; Visit Provider Family Medicine
DX: M25.552 Pain in left hip (principal); Z98.1 Arthrodesis status
CPT/HCPCS: 73502

== ENCOUNTER → 2024-03-02 11:45 | Outpatient (CLI) | payer MEDICARE, OTHER, SELFPAY ==
[2024-03-02 12:49] LABS: Add Manual Diff / Slide Review NO; Basophils Absolute Auto 100 /uL (0-100); Basophils Percent Auto 0.8 % (0-2); Eosinophils Absolute Auto 1000 /uL (0-450); Eosinophils Percent Auto 13.4 % (2-4); Hematocrit 42.8 % (36-46); Hemoglobin 14.2 g/dL (12.0-16.0); Lymphocytes Absolute Auto 1800 /uL (1100-4500); Lymphocytes Percent Auto 24.9 % (25-40); Mean Corpuscular HGB Conc 33.1 % (30-36); Mean Corpuscular Hemoglobin 27.1 PG (26-34); Mean Corpuscular Volume 81.8 fL (80-100); Monocytes Absolute Auto 500 /uL (0-900); Monocytes Percent Auto 6.3 % (3-14); Neutrophils Absolute Auto 3900 /uL (1500-7000); Neutrophils Percent Auto 54.6 % (50-75); Platelet Count 148 X10^3/uL (150-400); Red Blood Cell Count 5.22 X10^6/uL (4.0-5.2); Red Cell Distribution Width 13.8 % (11.6-14.8); White Blood Cell Count 7.2 X10^3/uL (4.5-11.0)
[2024-03-02 18:11] LABS: TSH w/ Reflex to FT4 1.76 uIU/mL (0.47-4.68)
[2024-03-02 18:33] LABS: HEMOLYSIS < 15 (0-50)
[2024-03-02 18:38] LABS: Alanine Aminotransferase 24 IU/L (<35); Albumin Globulin Ratio 1.4 (1.0-2.8); Alkaline Phosphatase 93 U/L (38-126); Aspartate Aminotransferase 35 IU/L (14-36); BUN Creatinine Ratio 26.3 (6-22); Bilirubin Total 0.7 mg/dL (0.2-1.3); Blood Urea Nitrogen 20 mg/dL (7-17); Calcium 9.6 mg/dL (8.4-10.2); Carbon Dioxide 32 mmol/L (22-32); Chloride 106 mmol/L (98-107); Cholesterol 239 mg/dL (140-199); Estimated Glomerular Filt Rate > 60 mL/min (>60); Globulin 2.8 g/dL (1.7-4.1); Glucose 95 mg/dL (80-110); HDL Cholesterol 84 mg/dL (40-60); LDL Cholesterol Calculated 138 mg/dL (<100); Sodium 140 mmol/L (137-145); Total Protein 6.8 g/dL (6.3-8.2); Triglycerides 86 mg/dL (35-150)
[2024-03-03 02:07] LABS: High Sensitivity CRP - Cardiac 1.5 mg/L (1.0-3.0)
== END ==
PROVIDERS: PCP Family Medicine; Referring Provider Family Medicine; Visit Provider Family Medicine
DX: E03.9 Hypothyroidism, unspecified (principal); M81.0 Age-related osteoporosis without current pathological fracture; K21.9 Gastro-esophageal reflux disease without esophagitis; E78.00 Pure hypercholesterolemia, unspecified
CPT/HCPCS: 36415; 80053; 80061; 84443; 85025; 86140

== ENCOUNTER → 2024-03-07 15:04 | Outpatient (CLI) | payer MEDICARE, OTHER, SELFPAY ==
--- NOTE | 2024-03-07 15:06 | DI.MRI.S_ITS ---
PROCEDURE: MR HIP LT WO CON INDICATIONS: chronic hip pain TECHNIQUE: Noncontrast coronal T1 spin echo and STIR through the bony pelvis. Coronal and axial T2 fast spin echo with fat saturation, sagittal T1 spin echo, and oblique axial T2 fast spin echo with fat saturation through the hip. COMPARISON: [facility], CR, XR HIP W PEL IF DONE LT 2V, 02/23/2024, 15:55. FINDINGS: Image quality: Excellent. Bones and joints: [id number] bilateral hip joint osteoarthritic changes are seen with superior joint space narrowing and subchondral sclerosis. No intraosseous lesions or fractures. No avascular necrosis of the femoral heads. Postsurgical changes are noted in visualized lower lumbar spine from prior spinal fusion. Tendons and ligaments: Tendinosis and low-grade partial-thickness tear involving distal left gluteus medius and minimus tendons at their insertions on greater trochanter is seen. The nearby proximal iliotibial band also appears intact. The iliopsoas tendon appears intact, without adjacent bursal fluid collections or evidence for impingement syndrome. Tendinosis involving left hamstring tendon origins at ischial tuberosity is also seen. Labrum and cartilage: Signal abnormality and fraying of superior anterior labrum at 12 to 1 o'clock position is seen suggestive of subtle superior anterior labral tear. Diffuse thinning of articulating cartilage over left femoral head is also noted. The alpha angle of the femur is within normal limits at less than 55 degrees. Soft tissues: Visualized muscles demonstrate normal bulk and internal signal. Quadratus femoris muscle demonstrates no internal edema to suggest ischiofemoral impingement. The proximal sciatic neurovascular bundle appears normal adjacent to the hamstring tendons. No free pelvic fluid. Bladder wall thickness is normal. Genitourinary structures and bowel loops appear normal where visualized. IMPRESSION: 1. [id number] bilateral hip joint osteoarthritis. No fracture or dislocation. No evidence of avascular necrosis. 2. Low-grade partial-thickness tear involving distal left gluteus medius and minimus tendons at their insertion on greater trochanter. Tendinosis involving left hamstring tendon origins at ischial tuberosity. No other muscle or tendon signal abnormalities. 3. Suggestion of subtle superior anterior left hip labral tear at 12 to 1 o'clock position. Dictated by: Boni Manning M.D. on 03/08/2024 at 10:48 Approved by: Boni Manning M.D. on 03/08/2024 at 11:35
== END ==
LOC: MRI 15:05
PROVIDERS: PCP Family Medicine; Referring Provider Family Medicine; Visit Provider Family Medicine
DX: S76.012A Strain of muscle, fascia and tendon of left hip, initial encounter (principal); M16.0 Bilateral primary osteoarthritis of hip; M25.552 Pain in left hip; G89.29 Other chronic pain
CPT/HCPCS: 73721

== ENCOUNTER → 2024-05-11 08:43 | Outpatient (CLI) | payer MEDICARE, OTHER, SELFPAY ==
[2024-05-13 14:09] LABS: Candida species Negative (Negative); Gardnerella vaginalis Negative (Negative); Trichomoas vaginalis Negative (Negative)
== END ==
LOC: LAB 05-25 08:43
PROVIDERS: PCP Family Medicine; Referring Provider Family Medicine; Visit Provider Family Medicine
DX: N89.8 Other specified noninflammatory disorders of vagina (principal)
CPT/HCPCS: 87480; 87510; 87660

== ENCOUNTER → 2025-02-02 15:16 | Outpatient (CLI) | payer MEDICARE, OTHER, SELFPAY ==
--- NOTE | 2025-02-02 15:17 | DI.MG.S_ITS ---
MM screening mammo BI: 02/02/2025. BI-RADS: 2 CLINICAL: 74-year old female for bilateral screening mammogram. Tyrer-Cuzick lifetime risk of 3.4%. No personal or first-degree family history of breast cancer. The patient had a prior left breast biopsy. PRIOR EXAMS 02/02/2024, 10/06/2023, 02/20/2023, 01/30/2023, 01/01/2022, 12/20/2020, 12/14/2019, 12/04/2018, 09/26/2017, 09/06/2016, 09/04/2015. MAMMOGRAPHY TECHNIQUE: 2D and 3D (tomosynthesis) digital mammographic views obtained, with additional images as needed for full coverage. Current study was also evaluated with a Computer Aided Detection (CAD) system. DENSITY C. The breasts are heterogeneously dense, which may obscure small masses. MAMMOGRAPHY FINDINGS Right: Typically-benign vascular calcifications noted. Left: Benign-appearing post-surgical changes noted on the left. There are no suspicious masses, calcifications, or other findings in the breast. IMPRESSION: * No evidence of malignancy with benign findings. RECOMMENDATIONS Bilateral * Annual screening mammography. OVERALL ASSESSMENT CATEGORY BI-RADS-2: Benign. The [employer] recommends annual screening mammography beginning at age 40 for women with average risk of breast cancer. ELECTRONICALLY SIGNED: Eros Tobar M.D. on 02/02/2025 at 04:26:37 PM PT Interpreting Station ID: [id number]
--- NOTE | 2025-02-02 15:17 | DI.RAD.S_ITS ---
PROCEDURE: XR DEXA AXIAL SKELETON INDICATIONS: bone density screening COMPARISON: [facility], , XR DEXA AXIAL SKELETON, 01/30/2023, 15:16. FINDINGS: Left Femoral Neck: Bone mineral density 0.628 g/cm2, T score -2.0 compared to -1.6. Left Hip: Bone mineral density 0.718 g/cm2, T score -1.8, compared to -1.4,. Left Forearm: Bone mineral density 0.586 g/cm2, T score -1.8 compared to -1.5,. Fracture Risk Calculation (when applicable): 10-year fracture risk of a major osteoporotic fracture 34 percent and of a hip fracture 19 percent. (T score greater or equal to -1.0 to: NORMAL) (T score from -1.1 to -2.4: OSTEOPENIA) (T score less than or equal to -2.5: OSTEOPOROSIS) IMPRESSION: Moderate osteopenia overall demonstrating progression of bone mineral density loss. Follow-up guidelines as follows: Osteoporosis: Consider a repeat DEXA and Vertebral Fracture Assessment (VFA) exam in 2 years or sooner if medically necessary, to reassess this patient's status. Osteopenia: Consider a repeat DEXA in 2-3 years to reassess this patient's status, or if there is a new clinical indication. Normal: Consider a repeat DEXA in 5 years or sooner, or if there is a new clinical indication. All treatment decisions require clinical judgment and consideration of individual patient factors, including patient preferences, comorbidities, previous drug use, risk factors not captured in the FRAX model (e.g., frailty, falls, vitamin D deficiency, increased bone turnover, interval significant decline in bone density ) and possible under- or over-estimation of fracture risk by FRAX. In addition, the NOF Guide recommends that FDA-approved medical therapies be considered in postmenopausal women and men age >= 50 years with a: * Hip or vertebral (clinical or morphometric) fracture * T-score of <=-2.5 at the spine or hip * Ten-year fracture probability by FRAX of >= 3% for hip fracture or >=20% for major osteoporotic fracture. Dictated by: Leslie Esposito M.D. on 02/02/2025 at 16:57 Approved by: Leslie Esposito M.D. on 02/02/2025 at 16:58
== END ==
PROVIDERS: PCP Family Medicine; Referring Provider Family Medicine; Visit Provider Family Medicine
DX: Z12.31 Encounter for screening mammogram for malignant neoplasm of breast; M85.89 Other specified disorders of bone density and structure, multiple sites; R92.333 Mammographic heterogeneous density, bilateral breasts; R92.1 Mammographic calcification found on diagnostic imaging of breast
CPT/HCPCS: 77063; 77067; 77080; 77081

== ENCOUNTER → 2025-02-18 12:23 | Outpatient (CLI) | payer MEDICARE, OTHER, SELFPAY ==
[2025-02-18 13:04] LABS: Add Manual Diff / Slide Review NO; Basophils Absolute Auto 0 /uL (0-100); Basophils Percent Auto 0.6 % (0-2); Eosinophils Absolute Auto 400 /uL (0-450); Eosinophils Percent Auto 6.8 % (2-4); Hematocrit 44.6 % (36-46); Hemoglobin 14.6 g/dL (12.0-16.0); Lymphocytes Absolute Auto 1700 /uL (1100-4500); Lymphocytes Percent Auto 25.5 % (25-40); Mean Corpuscular HGB Conc 32.9 % (30-36); Mean Corpuscular Hemoglobin 27.3 PG (26-34); Mean Corpuscular Volume 82.9 fL (80-100); Monocytes Absolute Auto 500 /uL (0-900); Monocytes Percent Auto 7.2 % (3-14); Neutrophils Absolute Auto 3900 /uL (1500-7000); Neutrophils Percent Auto 59.9 % (50-75); Platelet Count 147 X10^3/uL (150-400); Red Blood Cell Count 5.37 X10^6/uL (4.0-5.2); Red Cell Distribution Width 14.7 % (11.6-14.8); White Blood Cell Count 6.5 X10^3/uL (4.5-11.0)
[2025-02-18 13:23] LABS: Alanine Aminotransferase 26 IU/L (<35); Albumin 4.4 g/dL (3.5-5.0); Albumin Globulin Ratio 1.7 (1.0-2.8); Alkaline Phosphatase 86 U/L (38-126); Aspartate Aminotransferase 37 IU/L (14-36); BUN Creatinine Ratio 24.4 (6-22); Bilirubin Total 0.7 mg/dL (0.2-1.3); Blood Urea Nitrogen 20 mg/dL (7-17); Calcium 9.7 mg/dL (8.4-10.2); Carbon Dioxide 30 mmol/L (22-32); Chloride 102 mmol/L (98-107); Cholesterol 260 mg/dL (140-199); Estimated Glomerular Filt Rate > 60 mL/min (>60); Globulin 2.6 g/dL (1.7-4.1); Glucose 103 mg/dL (80-110); HDL Cholesterol 82 mg/dL (40-60); HEMOLYSIS < 15 (0-50); LDL Cholesterol Calculated 159 mg/dL (<100); Potassium 4.2 mmol/L (3.4-5.1); Sodium 136 mmol/L (137-145); Triglycerides 93 mg/dL (35-150)
[2025-02-18 13:40] LABS: Free T3, Triiodothyronine Free 3.36 pg/mL (2.77-5.27); Free T4, Direct Thyroxine 1.19 ng/dL (0.78-2.19)
[2025-02-18 13:53] LABS: Thyroid Stimulating Hormone 1.93 uIU/mL (0.47-4.68)
[2025-02-20 03:38] LABS: Insulin Level Total 4.5 uIU/mL (2.6-24.9)
== END ==
PROVIDERS: PCP Family Medicine; Referring Provider Family Medicine; Visit Provider Family Medicine
DX: E78.00 Pure hypercholesterolemia, unspecified (principal); D50.0 Iron deficiency anemia secondary to blood loss (chronic); I10 Essential (primary) hypertension; E06.3 Autoimmune thyroiditis; E03.8 Other specified hypothyroidism; E88.819 Insulin resistance, unspecified
CPT/HCPCS: 36415; 80053; 80061; 83525; 84439; 84443; 84481; 85025

== ENCOUNTER → 2025-02-22 14:49 | Outpatient (CLI) | payer MEDICARE, OTHER, SELFPAY ==
[2025-02-28 00:07] LABS: C-Telopeptide, Serum 109 pg/mL (.)
[2025-03-06 10:08] LABS: Creatinine, Urine 28.7 mg/dL (Not Estab.); N-telo/Creat. Ratio 24 (0-89); N-telopeptide 61 nmol BCE (Not Estab.)
== END ==
PROVIDERS: PCP Family Medicine; Referring Provider Family Medicine; Visit Provider Family Medicine
DX: M81.0 Age-related osteoporosis without current pathological fracture (principal)
CPT/HCPCS: 36415; 82523

== ENCOUNTER → 2025-04-27 11:28 | Outpatient (CLI) | payer MEDICARE, OTHER, SELFPAY ==
[2025-04-27 12:46] LABS: Cholesterol 258 mg/dL (140-199); HDL Cholesterol 73 mg/dL (40-60); LDL Cholesterol Calculated 165 mg/dL (<100); Triglycerides 102 mg/dL (35-150)
[2025-04-28 04:09] LABS: CRP, High Sensitivity 0.65 mg/L (0.00-3.00)
[2025-04-29 13:13] LABS: Creatinine, Urine 30.7 mg/dL (Not Estab.); N-telo/Creat. Ratio 18 (0-89); N-telopeptide 50 nmol BCE (Not Estab.)
[2025-05-02 13:40] LABS: C-Telopeptide, Serum 149 pg/mL (.)
[2025-06-01 16:59] LABS: Appearance Urine UA CLEAR; Bilirubin Urine UA NEGATIVE (NEGATIVE); Color Urine UA YELLOW; Glucose Urine UA NEGATIVE (Negative); Ketones Urine UA NEGATIVE (NEGATIVE); Leukocyte Esterase Urine UA NEGATIVE (NEGATIVE); Nitrite Urine UA NEGATIVE (Negative); Occult Blood Urine UA NEGATIVE (Negative); Protein Urine UA NEGATIVE (Negative); Specific Gravity Urine UA <=1.005 (1.000-1.035); Urobilinogen Urine UA 0.2 E.U./dL (0.2); pH Urine UA 6.5 (4.5-8.0)
[2025-06-01 17:15] LABS: Bacteria Urine None Seen; RBC Urine 0-1/HPF (0-5/HPF); Squamous Epithelial Cell Urine None Seen (0-5/HPF); Urine Volume 10mL (spun); WBC Urine None Seen (0-5/HPF)
== END ==
PROVIDERS: Obstetrics & Gynecology Gynecology; PCP Family Medicine; Referring Provider Family Medicine; Visit Provider Family Medicine
DX: E03.9 Hypothyroidism, unspecified (principal); M81.0 Age-related osteoporosis without current pathological fracture; I10 Essential (primary) hypertension; D64.9 Anemia, unspecified; E78.00 Pure hypercholesterolemia, unspecified
CPT/HCPCS: 36415; 80061; 81001; 82523; 84443; 86140

== ENCOUNTER → 2025-06-02 15:07 | Outpatient (CLI) | payer MEDICARE, OTHER, SELFPAY | PROVIDERS: PCP Family Medicine; Referring Provider Family Medicine; Visit Provider Family Medicine | DX: R00.2 Palpitations (principal) | CPT/HCPCS: 93246 ==

== ENCOUNTER → 2025-06-27 16:35 | Outpatient (CLI) | payer MEDICARE, OTHER, SELFPAY | PROVIDERS: PCP Family Medicine; Referring Provider Family Medicine; Visit Provider Family Medicine | DX: I49.8 Other specified cardiac arrhythmias (principal); I49.3 Ventricular premature depolarization; I49.1 Atrial premature depolarization | CPT/HCPCS: 36415; 83735 ==

== ENCOUNTER 2025-08-08 06:28 | Day surgery (SDC) | payer MEDICARE, OTHER, SELFPAY ==
--- NOTE | 2025-07-28 13:10 | P.HPOB_ITS ---
History of Present Illness History of Present Illness Narrative: Steven Frances is a 75 year old female , allergic to cepahlosporins Date of procedure:?? August 08, 2025 Preoperative diagnosis:? 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 she desires ovaries to be removed, for ovarian cancer prevention. Allergic to cephalosporins, therefore we will use ciprofloxacin and clindamycin as antibiotic prophylaxis Reports significant nausea vomiting from surgery, so we will use scopolamine and Zofran for her. Unable to use Motrin postoperatively for pain control. She already has oxycodone at home from a prior surgery and so declines a new prescription. She will obtain Tylenol Postop Meds Tylenol 1000 mg, ?3 times a day? Oycodone 5 mg,? take 1 pill every 4-6 hr as needed, no new prescription, has already at home from prior surgery colace bid CC: Recurrent prolapse HPI: 75-year-old female who presents for evaluation of above complaint.?? She reports onset of symptoms 2019.?? She considers this a? Moderate? problem. She has a history of vaginal prolapse, treated previously in 2018 at the [facility], by Dr. Matthews. She underwent anterior colporrhaphy, posterior colporrhaphy, ileal coccygeal vaginal vault suspension. The surgery held her prolapse up for about 1 year and then her symptoms recurred. She was seen for follow up at the [facility] and they suggested a sacral colpopexy based on a recurrent cystocele to the introitus and recurrent vaginal vault prolapse to -3 cm. No rectocele Her current prolapse symptoms include vaginal bulge, just past the introitus, and heaviness. No voiding dysfunction, no defecation difficulty. No splinting. She presents today for consultation for repeat surgery. She is interested in having robotic laparoscopic sacral colpopexy. Based on the findings above, I agree that is the surgery that she would need. We will confirm with exam below. We spent most of the appointment talking about risks of mesh and risks of potential stress incontinence possibly needing a mid urethral sling. 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 Presently she has stress incontinence that is very mild, only once a month. But she is at risk of developing worsening stress incontinence postoperatively with correction of the prolapse. We discussed doing an intraoperative assessment to determine if she has stress incontinence and placing a sling if needed during the surgery. No prior sling. See below for details She also currently has urge incontinence that occurs about once or twice a day. No use of pads. Voids every 1-1/2 hours in the daytime, nocturia times 2-3. Moderate urgency. No prior use of overactive bladder medication. She does report using estrogen patch, with progesterone. She had an appendectomy at age 15, was not ruptured, done via low-transverse incision. Prior vaginal hysterectomy in her 40s for heavy menses. Reports that she can not use aspirin or NSAIDs medication, prefers just use Tylenol postoperatively. prior hyst -yes, still has her ovaries, told her that it is her choice whether or not to remove the ovaries at the time of the sacral colpopexy. -x2 c-sec -0 Pelvic Floor Review of Systems: (HPI) Stress Urinary Incontinence symptoms (ROSALIND): Once a month Triggers include: Sneeze, cough, exercise ? Urge Incontinence symptoms (Urge UI): Once or twice a day Triggers include: Full bladder with urge, especially getting up at night to void ? Pads: She wears 0 pads Overactive Bladder symptoms (OAB):? ? Frequency:?? Every 1-1/2 hours Nocturia:?? Times 2-3 Urgency:?? Moderate Prior incontinence treatment includes:? Medical:? No Surgical:? No? Kegels:?? Yes Physical therapy:?No? Pessary:?No? Diet / Fluids: Fluid restriction:? No Excessive fluids:?No Pain symptoms:? Painful bladder:???No Dysuria:??? No Dyspareunia:? No Dysmenorrhea:? No Urinary Risk Factors UTI?s, recurrent:? No Hematuria:? No Kidney Stones:?No? Tobacco use:? No Pelvic Organ Prolapse (POP) symptoms:?? Bulge:?Yes Pressure and /or? Heaviness:?Yes Splint for defecation or voiding:???No Voiding dysfunction: Abnormal stream:? No Strain to void:? No Incomplete emptying:?No Voiding difficulty:? No Retention:??? No Bowel Function: Constipation:?No Strain to defecate:?No Fiber:?No Laxatives:?Yes Fecal Incontinence:? Liquid stool:? No Solid stool:?No?? Sexual function Sexually active: Yes Incontinence with sex:? No ? General Review of Systems: Constitutional, CV, Endo, Musc-skel, Eyes, Cancer, Skin, Breast, GI, Heme/Lymph, Psych, Urinary, Neuro, Band Tacker, Resp, Sexual:??? Pertinent positives listed above in HPI All others reviewed and negative. All reviewed on patient questionnaire.? . . 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) Malaria (~1960) Hepatitis A (~1963) Chickenpox (~1952) Rubella (~1961) Nasal septal perforation (~2009) Redundant colon GERD (gastroesophageal reflux disease) (~1989) Hyperlipidemia Hypertension (~2003) Low back pain radiating to left lower extremity (11/28/15) Surgical History Anesthesia Fusion of lumbar spine (~01/14/17) History of third molar tooth extraction (~1969) Status post vaginal hysterectomy (~1981) Status post ovarian cystectomy (~1964) Status post appendectomy (~1964) Status post tonsillectomy and adenoidectomy (~1951) Family History Brother Age: 84 High cholesterolFather Heart disease High cholesterol Osteoporosis Renal failureMother Heart disease Hypertension High cholesterol Osteoporosis Alzheimer's disease PneumoniaSister Age: 82 High cholesterol OsteoporosisSister Age: 80 OsteoporosisSister Age: 74 High cholesterol Allergies codeine Allergy (Mild, Verified 06/01/25 12:55) BRADYCARDIAepinephrine Allergy (Mild, Verified 06/01/25 12:55) erythromycin base Allergy (Mild, Verified 06/01/25 12:55) GI UPSETCephalosporins Adverse Reaction (Verified 06/01/25 12:55) Rashlavendar Adverse Reaction (Intermediate, Uncoded 06/01/25 13:00) Rash Medications famotidine 20 mg tablet 20 mg PO DAILY 01/17/20 [History Confirmed 07/19/25] clotrimazole-betamethasone 1 %-0.05 % topical cream 1 applic topical BID #45 grams 01/03/21 [Rx Confirmed 07/19/25] Held on 05/14/24. Instructions: yeast neg, replace w steroid onlyamitriptyline 10 mg tablet 5 mg (1/2 x 10 mg) PO BEDTIME #45 tabs 09/29/24 [Rx Confirmed 07/19/25] Held on 02/22/25. Instructions: try offomeprazole 20 mg capsule,delayed release 20 mg PO DAILY #90 caps 09/29/24 [Rx Confirmed 07/19/25] progesterone micronized 100 mg capsule 100 - 300 mg (1 - 3 x 100 mg) PO BEDTIME #540 caps 04/05/25 [Rx Confirmed 07/19/25] estradiol 0.01% (0.1 mg/gram) vaginal cream 1 g vaginal 3XW #42.5 grams 06/07/25 [Rx Confirmed 07/19/25] estradiol 0.025 mg/24 hr semiweekly transdermal patch transdermal 06/27/25 [History Confirmed 07/19/25] levothyroxine 125 mcg tablet 62.5 mcg (1/2 x 125 mcg) PO DAILY #45 tabs 06/28/25 [Rx Confirmed 07/19/25] Exam Height 5 ft 3.5 in Weight 144 lb BMI 25.1 BP 159/90 H Blood Pressure Location Lt radial Position Sitting Pulse 66 Pulse Source Monitor Pulse Oximetry (%) 100 Oxygen Delivery Method room air General: healthy, alert, coherent, no acute distress, cooperative, nontoxic Pulmonary: normal breathing, no distress Abdomen: soft, no mass, non-distended, no hernia, non-tender Skin: Scars on Abd: Low-transverse, prior appy, age 15 Vulva: Normal labia majora, labia minora, introitus, and clitoris, non-tender Urethra meatus: normal, no discharge Perineum: Normal, non-tender Urethra: No mass, non-tender, there is good urethral support from the prior surgery, so her risk of needing a sling to treat postop stress incontinence seems like it should be less than the usual 25% Bladder: no mass, non-tender Vagina: No lesions, no discharge, + moderate to severe vaginal atrophy, non- tender Prolapse stage II vaginal vault prolapse with upper cystocele and upper posterior vaginal wall prolapse, need sacral colpopexy Levators: Non-tender, 4-5/ 5 kegel squeeze Hysterectomy Bimanual: no mass, no adnexal mass, non-tender Anus: No lesion, non-tender, no hemorrhoid Empty Cough Stress test: Neg PVR: 20 mL by catheter Urethral angle hypermobile: No POP-Q Exam: Aa: -3 Ba: +2 Ap: -3 Bp: +2 C: +2 D: Not applicable TVL: 8 GH: 2.5 PB: 3.5 Introitus size: 2 fingerbreadths Cystocele stage: Stage III Rectocele stage: No true rectocele just upper posterior prolapse Uterine/Vault Prolapse Stage: Stage III Assessment & Plan (1) Vaginal vault prolapse: Status: Acute (2) Midline cystocele: Status: None (3) Vaginal atrophy: Status: Acute (4) Urge incontinence of urine: Status: None (5) OAB (overactive bladder): Assessment and Plan ? Patient counseled regarding above conditions.? Educational materials given to patient. 1. Pelvic Organ Prolapse - Stage 3 prolapse, primarily vaginal vault.? This diagnosis and its etiology was discussed with the patient.? Treatment options were discussed including: expectant management, pessary trial, and surgical intervention. We briefly discussed risks and benefits of surgery. All surgery for prolapse is not 100% successful and there is a chance of recurrence or failure. Declines pessary Failed prior prolapse surgery with A& P repair and ileal coccygeal vault suspension she desires surgery my recommendation = robotic laparoscopic sacral colpopexy, cystoscopy Small probability of needing a mid urethral sling to treat postoperative stress incontinence. see below for counseling 2. No significant Urethral hypermobility She is at risk for postoperative stress incontinence from the prolapse repair. But less than the usual 25% risk Studies show that in women with severe prolapse of the anterior vaginal wall, 25% will have significant stress incontinence, following prolapse repair surgery. However her prior surgery seems to be supporting her urethra well. So her risk of finding stress incontinence, as below, is likely only about 10% Will plan to diagnose stress incontinence intra-operatively by filling the bladder with 200-300 cc of fluid, and then using a crede maneuver to see if there is leakage of fluid from the urethra. If there is leakage, then stress incontinence will be diagnosed, and she will be treated with a mid urethral sling. 3. Overactive bladder and urge incontinence.?? This diagnosis and its etiology was discussed with the patient.? Treatment options were discussed including: Behavior changes ( Limit fluid intake, Avoiding fluid intake 3 hours before bedtime, Avoiding bladder irritants / follow bladder diet, Bladder training exercises), Kegel / pelvic floor muscle exercises,? OAB Medications, and procedures to include:? bladder botox A injections, Interstim, and PTNS.?? OAB handout given.? Bladder Diet handout given (Decrease caffeine, decrease acidic foods, decrease tobacco) Kegel handout given No OAB med treatment for now, just behavior changes. 4. Vaginal atrophy we will treat with vaginal estrogen cream. 1 g 3 nights a week She has vaginal atrophy, with associated vaginal dryness and dyspareunia. - She is interested in using ERT.? Options include topical or systemic estrogen - Vaginal estrogen can be offered to almost every single post-menopausal female, as it is topical (as opposed to systemic estrogen, as listed below).? It will not cause uterine or breast cancer.? A recent RCT study (late 2023) demonstrated that vaginal estrogen is safe to use in women with Breast cancer, even if their cancer has ?+ estrogen receptors? (this was previously controversial).? Vaginal estrogen options below. a.? Vaginal Estrogen Cream:? apply with finger or applicator, 2-3 times a week (Estrace cream,? Premarin cream,? compounded estrogen cream) b.? Vaginal Estrogen Tablet? (Vagifem):? insert 2 times a week c.? Estring (vaginal ring device):? insert into vagina, replace every 3 months - Systemic Estrogen has the above vaginal health benefits, and will also treat hot flashes, and reduce osteoporosis, but has side effects to include increased blood clots, increased uterine cancer, and cannot be used in women with breast cancer if their cancer has ?+ estrogen receptors?.? Generally it is OK to start using within 10 years of menopause. Starting systemic estrogen after this time has increased risks of heart attack or stroke. Systemic estrogen includes oral estrogen and transdermal estrogen patch / skin gel.? Osphena is a newer drug called a selective estrogen receptor modulator (SERM), and has beneficial estrogen effects on vagina and bones, with anti-estrogen effects on breast, uterus, blood clots.? Whereas vaginal estrogen is nearly universally safe, patients need more counseling prior to using systemic estrogen or SERM?s. Low dose vaginal estrogen cream (or estring or vagifem estrogen tablets) does not cause heart attack or stroke or cancer, but also will not treat hot flashes or osteoporosis, because the dose is much less than the systemic dose typically used. Recommend that she use about 1/4? inch by fingertip to the vaginal opening / ure thra / lower vagina, and also about 1 gm (1/4 applicator) to be inserted into the upper vagina, 3 nights a week?? (This is about 10% of the typical oral dose for Estrogen Replacement Therapy).? As symptoms improve, the estrogen cream can be decreased to 2 nights a week, and used indefinitely.?? Surgical Counselling Note Patient seen for surgical counselling.? She desires surgical repair. Please see? H & P for exam and discussion. Date of procedure:?? August 08, 2025 Preoperative diagnosis:? 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 Allergic to cephalosporins, therefore we will use ciprofloxacin and clindamycin as antibiotic prophylaxis Reports significant nausea vomiting from surgery, so we will use scopolamine and Zofran for her. Unable to use Motrin postoperatively for pain control. She already has oxycodone at home from a prior surgery and so declines a new prescription. She will obtain Tylenol Postop Meds Tylenol 1000 mg, ?3 times a day? Oycodone 5 mg,? take 1 pill every 4-6 hr as needed, no new prescription, has already at home from prior surgery Colace,? 1 pill BID, for constipation Patient counseled extensively about the Risks, Benefits, and Alternatives to surgery.? She was offered the opportunity to ask any questions, and all questions were answered. ? Surgical Risks include: Bleeding, Hemorrhage, Transfusion, Infection (especially wound or bladder), Injury to adjacent organs (especially bladder, ureter, bowel, blood vessels, nerves), Postop or Chronic Pain, need for Reoperation, and Life-threatening event (especially M.I., CVA, PE, DVT). Procedure Risks include: Failure to Cure condition, Recurrence of condition months or years later, Urinary incontinence, Voiding dysfunction or Urinary Retention with prolonged catheter use, Poor wound healing, Erosions of any mesh or graft used, Dyspareunia, Vaginal scarring or narrowing, Need for additional surgery (immediate or delayed).? The expected cure and improvement and failure rates were discussed. Patient counseled to avoid the following for 6 weeks after surgery: (1) Impact sports (like running or jumping), walking and stairs OK (2) Lifting over 20# (3) Sexual intercourse No limits after 6 weeks. ? Good exercise tolerance, > 4 Mets. Her current medications were reviewed, and instructions given over which to use and which to discontinue before surgery.? Post-operative care instructions reviewed.? We discussed post-operative pain: Pain should be in the mild-moderate range, but can be moderate-severe for the first few days.?? Prescriptions will typically be given for (1) acetaminophen (Tylenol) and (2) non-steroidal anti-inflammatory drug (NSAID, like Motrin or Naprosyn), use both together, around the clock. Prescription will also be given for a (3) narcotic pain medication. Use the narcotic as needed, as a booster to the Tylenol and NSAID. You might need 0-4 narcotic pills a day typically. The narcotic will only be needed for a few days.?? Gradually use less of the narcotic, but continue the Tylenol and NSAID.? After a few days, the narcotic should no longer be needed, and only the Tylenol and NSAID will be needed.? Warm packs or cold packs can also be used for pain.??Do not drive for as long as you are using the narcotic pain medication? - this should only be a few days.?? Constipation is associated with use of narcotic pain medications, and can be improved with use of a stool softener, or fiber, or a mild laxative.? If you are sent home from the hospital with a Miguel Catheter in place:? please call the office on the day after surgery We will usually remove the catheter 2-4 days after surgery: a. You will perform an at home Miguel catheter removal -or- b. You will come in to the office for a voiding trial, (For some unusual surgeries, we might leave the catheter in for up to 2 weeks, and then remove it.) Instructions for at home Miguel catheter removal..... For at-home Miguel catheter removal, this can be done on postop day 2 or 3 or 4, depending on various factors. 1. At 6 or 7 a.m., have the patient cut the Miguel catheter with scissors, while standing in a shower or bath tub. a. Cut the catheter right in the middle of the tubing, about 6 inches from the body. b. The sterile water that is inside the Miguel balloon will leak all over the floor of the shower or bath tub. This is expected. c. The catheter will either fall out of the urethra, or just gently pull on it and it will come out. 2. Now, the bladder will gradually fill up over the next few hours. 3. Go ahead and empty the bladder when you feel an urge to void. Please note how strong the urine stream is. a. If the urine stream is normal or close to normal, then everything is good to go. b. If the urine stream is slow or you can not void, then return to the clinic in the afternoon. We will place another Miguel catheter. We will repeat the voiding trial in 3-4 days. 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) Malaria (~1960) Hepatitis A (~1963) Chickenpox (~1952) Rubella (~1961) Nasal septal perforation (~2009) Redundant colon GERD (gastroesophageal reflux disease) (~1989) Hyperlipidemia Hypertension (~2003) Low back pain radiating to left lower extremity (11/28/15) Surgical History Anesthesia Fusion of lumbar spine (~01/14/17) History of third molar tooth extraction (~1969) Status post vaginal hysterectomy (~1981) Status post ovarian cystectomy (~1964) Status post appendectomy (~1964) Status post tonsillectomy and adenoidectomy (~1951) Family History (Updated 11/15/19 @ 13:59 by Rickey Brown, RN) Brother Age: 84 High cholesterol Father Heart disease High cholesterol Osteoporosis Renal failure Mother Heart disease Hypertension High cholesterol Osteoporosis Alzheimer's disease Pneumonia Sister Age: 82 High cholesterol Osteoporosis Sister Age: 80 Osteoporosis Sister Age: 74 High cholesterol Social History Smoking Status: Never smoker Meds Home Medications and Allergies Home Medications ?Medication ?Instructions ?Recorded ?Confirmed ?Type famotidine 20 mg tablet 20 mg PO DAILY 01/17/20/05/18 History clotrimazole-betamethasone 1 1 applic topical BID #45 grams 01/03/21 07/19/25 Rx %-0.05 % topical cream Held on 05/14/24. Instructions: yeast neg, replace w steroid only amitriptyline 10 mg tablet 5 mg (1/2 x 10 mg) PO BEDTI ME #45 09/29/24 07/19/25 Rx Held on 02/22/25. tabs Instructions: try off omeprazole 20 mg capsule,delayed 20 mg PO DAILY #90 ca ps 09/29/24 07/19/25 Rx release progesterone micronized 100 mg 100 - 300 mg (1 - 3 x 1 00 mg) PO 04/05/25 07/19/25 Rx capsule BEDTIME #540 caps estradiol 0.01% (0.1 mg/gram) 1 g vaginal 3XW #42.5 gr ams 06/07/25 07/19/25 Rx vaginal cream estradiol 0.025 mg/24 hr transdermal 06/27/25 5 History semiweekly transdermal patch levothyroxine 125 mcg tablet 62.5 mcg (1/2 x 125 mcg) PO DAILY 06/28/25 07/19/25 Rx #45 tabs Allergies Allergy/AdvReac Type Severity Reaction Status Date / Time acetaminophen (From Vicodin) Allergy Intermediate Nausea Verified 07/19/25 14:33 hydrocodone (From Vicodin) Allergy Intermediate Nausea Verified 07/19/25 14:33 codeine Allergy Mild BRADYCARDIA Verified 07/19/25 14:33 epinephrine Allergy Mild Verified 07/19/25 14:33 erythromycin base Allergy Mild GI UPSET Verified 07/19/25 14:33 Cephalosporins AdvReac Rash Verified 07/19/25 14:33 lavendar AdvReac Intermediate Rash Uncoded 07/19/25 14:33 Assessment & Plan Time-Based Coding :: [TOTAL MINUTES] spent with patient and on the chart (including review of chart, obtaining history, exam, reviewing outside data, placing orders, documenting exam and treatment plan, and counseling patient) on [DATE].
[2025-08-02 14:48] VITALS: BMI 25.1
[2025-08-08] VITALS (13 sets, daily range): BP systolic 104–158; BP diastolic 41–79; PULSE 69–82; RESP 10–20; TEMP 35.7–36.9; O2SAT 94–100; BMI 25.1
--- NOTE | 2025-08-08 | PATH_ITS ---
[facility] Accession Number: [id number] No. of containers..01 Tissue . 01 Material submitted: . ovary - BILATERAL TUBES AND OVARIES . 01 Diagnosis: BILATERAL TUBES AND OVARIES, BILATERAL SALPINGO-OOPHORECTOMY (COMBINED WEIGHT 6 GRAMS): First described fallopian tube, complete cross-sections with benign paratubal cysts (up to 4 mm); negative for significant atypia. Adherent ovarian tissue with no significant abnormality; entire ovary structure not completely identified in first-described adnexal structures; completeness of excision best determined clinically. (Entire blue-inked adnexal tissue submitted). Second described fallopian tube, complete cross-sections with benign paratubal cysts (up to 4 mm in greatest dimension); negatove for significant atypia. Ovary with benign inclusion and serous cysts; negative for significant atypia. [facility] 08/22/2025 1029 Local . 01 Electronically signed: . Dorothy Swain MD, Pathologist NPI- [id number] . 01 Gross description: . Received in formalin with two identifiers and bilat tubes and ovaries is a tubo-ovarian unit with the tube measuring 3.3 x 0.6 cm and the attached ovary weighing 3 grams and measuring 2.7 x 2.0 x 1.2 cm. The first tube and ovary are inked blue. The second detached tube measures 6.8 x 0.5 cm, while the detached ovary weighs 3 grams and measures 3.4 x 2.2 x 1.3 cm. The second tube and ovary are inked green. Both tubes have richardson smooth serosa with cystic structures up to 0.4 cm in greatest dimension filled with cloudy serous fluid. The lumen are stellate and unremarkable. . Both ovaries are richardson and cerebriform, and sectioning reveals the blue-inked ovary to have a congested physiologic cut surface while the green-inked ovary has a cystic structure 1.2 cm in greatest dimension with thin starkey containing yellow gelatinous material. No additional lesions are identified. Engine Lathe Tender sections are submitted as follows: . A1: First fallopian tube. A2: First ovary. A3: Second fallopian tube. A4: Second ovary. ([id number]) A5-A7: Remaining first-described adnexal tissue (blue-inked). /MRV 08/22/2025 1029 Local . 01 Pathologist provided ICD-10: N99.3 . 01 CPT . 139278 Specimen Comment: A courtesy copy of this report has been sent to [facility] Performed at: [address] [address], [place], [place] [id number] MD Cory Summers MD Phone: [phone]
[2025-08-08] MEDS: LACTATED RINGERS 1,000 ML 42 ML IV ×3 (07:13→14:38)
--- NOTE | 2025-08-08 07:36 | PM.PREOP ---
Pre-operative Note Interval Note History & Physical reviewed/Exam performed by Physician: Yes Changes to H&P: No
[2025-08-08] MEDS: PHENAZOPYRIDINE 100 MG TABLET 200 MG PO (07:46)
--- NOTE | 2025-08-08 08:28 | SUR.OPER ---
Lithotomy on padded OR bed. [place] Pad Positioner under torso. Head on pillow, face protected with prone pillow per Dr Mir, arms padded and tucked at sides. Legs secured in padded yellow fins stirrups. IV site and ports padded and protected.
[2025-08-08] MEDS: BUPivacaine 0.25% W/ EPI (PF) 30 ML VIAL INJ (08:38)
[2025-08-08] MEDS: ACETAMINOPHEN IV 1,000 MG/100 ML VIAL 400 MG IV (09:36)
[2025-08-08] MEDS: CLINDAMYCIN 900 MG/50 ML PIGGYBACK 50 MG IV (09:56)
[2025-08-08] MEDS: CIPROFLOXACIN 400 MG/200 ML PIGGYBACK 200 MG IV (09:57)
[2025-08-08] MEDS: LIDOCAINE 1% 20 ML INJ (11:23)
--- NOTE | 2025-08-08 11:45 | P.OP_ITS ---
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 Luca Ramos MD Medical Officer:?? Sena Argueta MD Pre-Op Diagnosis:?? 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 stage 3 Vaginal vault prolapse, cystocele, desires prophylactic oophorectomy stress urinary incontinence Procedure:?? Robotic assisted laparoscopic sacral colpopexy, Robotic laparoscopic bilateral salpingo-oophorectomy, cystoscopy mid urethral TVT sling Findings (brief): 1. 5 ports, usual fashion.?? no significant bowel or pelvic Adhesions. Prior hyst. ? The right and left fallopian tubes and ovaries were all removed.? Normal ovaries.? 2.? Restorelle mesh cut to 5 cm Ant and 7 cm Post, attached to vagina with sutures of 2-0 vicyrl.?? Excellent support of all 3 compartments.? 3.? Cystoscopy with normal bladder, ureters, urethra, no injury, bilateral ureteral jets.? 4. Bladder filled to 200 cc, obvious severe leaking from urethra with Suprapubic pressure (+ Crede), so therefore stress incontinence was diagnosed, so therefore she needed a mid urethral sling. 5. TVT sling placed at mid-urethra, tension-free.???Cystoscopy with normal bladder, ureters, urethra, no trocar injury, bilateral ureteral jets.? Date of Surgery:? August 08, 2025 Complications:? None Specimens:? Right and left tubes and ovaries Anesthesia Technique:?? General endotracheal Estimated Blood Loss (mls):? 30 Blood Replacement (mls):? none Drains:? Abel Condition:? Stable Procedure in detail: After consent was confirmed, the patient was taken to the operating room and placed under general anesthesia without incident.? Sequential compression devices were in place and active.? She received perioperative antibiotics.? She was then prepped and draped in the usual sterile fashion after placement in the dorsal lithotomy position using the Candido stirrups.? A Abel catheter was placed.? After consent was confirmed, the patient was taken to the operating room and?positioned with the [place] Pad on the OR bed, and then placed under general anesthesia without incident. ?Sequential compression devices were in place and active. ?She received perioperative antibiotics. ?The arms were tucked and her legs were placed in the dorsal lithotomy position using the Candido stirrups. ??She was then prepped and draped in the usual sterile fashion. ?An examination under anesthesia was consistent with the preoperative assessment. ?A three-way 16 turkish abel catheter was placed. ?Attention was turned to the abdomen. All 5 trocar sites were injected with 0.25% Marcaine with epinephrine prior to incision. A supra- umbilical 8?mm port was placed 2-3 cm above the umbilicus: a 8?mm incision was made, the Veress needle was placed, and pneumoperitoneum was achieved at low flow of 5, reaching a pressure of about 12, with 2-3 liters of CO2 gas. ?The abdominal wall was tented out to avoid any injury to underlying structures, and the trocar was introduced into the abdomen with ease, flow turned up to 40, pressure set at 12. ??Three?additional 8 mm robotic ports were placed, along the same line across the abdomen: ?? right lateral abdomen, left mid abdomen, left lateral abdomen,?under direct visualization atraumatically.??An additional licensed physical therapist assistant 8 mm port was placed in the RUQ.?The patient was placed into steep Trendelenberg. ?The DV5?robot was Docked from a side-dock approach, using 3 arms. ?During the dissection, monopolar scissors and bipolar [place]?forceps were used, and during suturing, these were replaced with 2 needle drivers. ?The [employer] grasper was used at the 3rd arm for surgical assistance. ?The 4th port was for the surgical dressing maker (passing sutures and suction / irrigation). ?At this point, I went to the robotic console to operate the robot.? ?The sigmoid was retracted, and the sacral promontory was identified, and the ureters were identifed lateral to the intended surgical planes.? Both ovaries and fallopian tubes were identified. The right fallopian tube was grasped. Cautery was used on the right ovarian artery and vein and these were then cut. The tube and ovary were dissected off of the Right pelvic sidewall using cautery, with good hemostasis. The specimen was placed into the right lower quadrant. The same procedure was repeated on the left side. The Left tube and ovary specimen was also placed into the right lower quadrant, near the appendix. After the sacral colpopexy was completed, the 8 mm licensed physical therapist assistant port was removed. At 11 mm port was inserted. A 10 mm bag was inserted through that port. Both tubes and ovaries were placed into that bag. The bag was pulled back out through the wound. The specimens were passed off the field. ? The bladder was dissected off the vagina for a distance of 4-5 cm, and the vagina was dissected off the posterior peritoneum, most of the way down the posterior vagina, approx 6-8 cm. ??The Alonso Surgical Sacral Colpopexy tip with the [place] was used to expose the vagina for dissection. ?Retrograde fill of the bladder facilitated the dissection. ?The peritoneum over the sacral promontory was incised and the dissection was carried down into the pelvis. ?The loose areolar connective tissue overlying the sacral promontory was dissected until the sacrum was clearly identified. ?The anterior arm of the Y-polypropylene mesh was fashioned as noted above, and sutured to the anterior vagina with several interrupted 2-0 vicryl sutures. ?The posterior arm of the mesh was fashioned as noted above, and sutured to the posterior vagina with several interrupted 2-0 vicryl sutures. ?The mesh tail was grasped to create a Y shape, cut to the appropriate length, and then attached to the sacral promontory in a tension-free manner, using 2 sutures of 2-0 Ethibond (permanent suture). The sacral peritoneum was closed over the mesh with a running 2-0 PDS / V-Lock suture, and then continued to close the peritoneum over the vaginal part of the mesh. I left the console and scrubbed and gowned and returned to the OR table. The robot was undocked.? The fascia at the 11 mm port site was reapproximated with 0-Vicryl suture using the Fabian-Collins device, with a 5 mm scope in the side port. ? All port sites were inspected for hemostasis, and pneumoperitoneum released. The skin incisions were reapproximated with 4-0 monocryl, and then dermabond was placed. ?Attention was turned to the remainder of the vagina where excellent apical support was appreciated. ?Cystourethroscopy was performed which revealed bilateral ureteral efflux of pyridium and no evidence of injury or suture material within the bladder urethra. The bladder was filled to 200 cc, with obvious severe leaking from urethra with Suprapubic pressure (+ Crede), so therefore stress incontinence was diagnosed, so therefore she needed a mid urethral sling. With the Abel catheter in place, the anterior vaginal mucosa beneath and lateral to the urethra was injected with 10-20 cc of? 0.5% lidocaine / epinephrine 1:200,000.? A 2-3 cm midline incision was made at the level of the midurethra with a scapel. Metzenbaum scissors were used to dissect the vagina from the urethra and then create tunnels beneath the vaginal mucosa up toward the pubic bone on each side.? A marking pen was used to kyle the skin just above the pubic bone and 2 cm from the midline bilaterally, and two small 8-10 mm incisions were made on the suprapubic skin.? The trocar was passed from the right vaginal tunnel, behind the pubic bone, to the right suprapubic incision, and this was repeated on the left side.? The Abel catheter was removed, and cystoscopy was performed with a 70 degree lens. There was no trocar injury, and the bladder, ureters, and urethra were normal.? The Abel catheter was reinserted.? The sling was pulled into position in a tension-free manner, and a Moon clamp was easily passed between the sling and the urethra.? The plastic sheaths were removed to anchor the sling, and tension was checked again. The end s of the sling were trimmed just below the skin, and the skin incisions were cleaned and closed with dermabond. The vaginal incision was closed with 2-0 vicryl in a running fashion. Sponge, needle and instrument count was correct.? The patient tolerated the procedure well and was taken to the recovery room in stable condition. Luca Ramos MD UroGynecology & Pelvic Reconstructive Surgery [place], [place] Applied: implant(s) (TVT sling, Restorelle SC mesh)
[2025-08-08] MEDS: ACETAMINOPHEN 325 MG TABLET 975 MG PO (14:38)
--- NOTE | 2025-08-08 19:08 | PC.NURSE ---
Discharge Packet Patient A&O, VSS, RA, no complaints of pain/discomfort. Discharge packet reviewed with patient, all question/concerns addressed. PIV discontinued. Patient able to dress self and pack all belongings. Patient taken down via wheelchair to POV accompanied by .
== END 2025-08-08 18:00 | disposition home or self-care (01) ==
LOC: OR 06:31 → AC 06:38
PROVIDERS: PCP Family Medicine; Referring Provider Family Medicine; Visit Provider Obstetrics & Gynecology Gynecology
PROC: 0USG4ZZ Reposition Vagina, Percutaneous Endoscopic Approach (ICD-10-PCS; CPT 57425; principal; 2025-08-08 07:45)
DX: N99.3 Prolapse of vaginal vault after hysterectomy (principal); N39.3 Stress incontinence (female) (male); Z40.02 Encounter for prophylactic removal of ovary(s); N83.8 Other noninflammatory disorders of ovary, fallopian tube and broad ligament
CPT/HCPCS: 57425; 58661; 57288; C1781; C1771; J0131; J0744; J1100; J2405; J2704; J3010; J3490

== ENCOUNTER → 2025-08-22 12:11 | Outpatient (CLI) | payer MEDICARE, OTHER, SELFPAY ==
[2025-08-08 06:38] VITALS: BMI 25.1
[2025-08-22 12:37] LABS: Appearance Urine UA SL CLOUDY; Bilirubin Urine UA NEGATIVE (NEGATIVE); Color Urine UA YELLOW; Glucose Urine UA NEGATIVE (Negative); Ketones Urine UA NEGATIVE (NEGATIVE); Leukocyte Esterase Urine UA 3+ (NEGATIVE); Nitrite Urine UA NEGATIVE (Negative); Occult Blood Urine UA 1+ (Negative); Protein Urine UA NEGATIVE (Negative); Specific Gravity Urine UA <=1.005 (1.000-1.035); Urobilinogen Urine UA 0.2 E.U./dL (0.2)
[2025-08-22 12:39] LABS: pH Urine UA 6.0 (4.5-8.0)
[2025-08-22 12:40] LABS: Culture Indicated Urine Specimen Cultured
== END ==
PROVIDERS: PCP Family Medicine; Referring Provider Obstetrics & Gynecology Gynecology; Visit Provider Obstetrics & Gynecology Gynecology
DX: R30.0 Dysuria (principal)
CPT/HCPCS: 81001; 87077; 87086; 87186

== ENCOUNTER → 2025-09-02 16:05 | Outpatient (CLI) | payer MEDICARE, OTHER, SELFPAY ==
[2025-08-08 06:38] VITALS: BMI 25.1
[2025-09-02 17:37] LABS: Culture Indicated Urine Cult Not Indicated
== END ==
PROVIDERS: PCP Family Medicine; Referring Provider Obstetrics & Gynecology Gynecology; Visit Provider Obstetrics & Gynecology Gynecology
DX: R39.9 Unspecified symptoms and signs involving the genitourinary system (principal)
CPT/HCPCS: 81015

== ENCOUNTER → 2025-10-06 14:51 | Outpatient (CLI) | payer MEDICARE, OTHER, SELFPAY ==
[2025-08-08 06:38] VITALS: BMI 25.1
--- NOTE | 2025-10-06 14:52 | DI.ECHO.S_ITS ---
[facility] : : [address] : : [place] : : [id number] : : Phone: [phone] Echocardiogram Report + + :Name: TERI SHARP Study Date: 10/06/2025 Height: 63 in : :[facility] ReadingLocation: Weight: 144 lb : : Gender: Female BSA: 1.7 m2 : :: 1950 Age: 75 yrs BP: 139/72 mmHg: :Reason For Study: PVC : :Ordering Physician: RODOLFO, : :TANYA Performed By: Aubrey Mirza : :Referring: TANYA REYNOLDS : + + Interpretation Summary The left ventricle is normal in size. The left ventricular ejection fraction is normal. The ejection fraction is estimated to be 60-65%. The right ventricle is normal in size and function. Mild MR. Overall no significant valvular pathology seen. The IVC is of normal diameter and collapses greater than 50% with a sniff. This suggests a low right atrial pressure of 3 mm Hg. Procedure: A two-dimensional transthoracic echocardiogram with color flow and Doppler was performed. The study quality was technically good. There is no prior echocardiogram noted for this patient. The patient was in normal sinus rhythm during the exam. Left Ventricle: The left ventricle is normal in size. There is normal left ventricular wall thickness. There is no thrombus. The ejection fraction is estimated to be 60-65%. The left ventricular ejection fraction is normal. There are no focal wall motion abnormalities. Diastolic parameters suggest a relaxation abnormality of the left ventricle, consistent with probable normal filling pressures. Right Ventricle: The right ventricle is normal in size and function. Atria: The left atrial size is normal. Right atrial size is normal. There is no Doppler evidence for an interatrial shunt. The atrial septum is aneurysmal. Mitral Valve: There is mild mitral annular calcification. The mitral valve chordae are thickened and/or calcified. Aortic Valve: The aortic valve is trileaflet. The aortic valve opens well. There is no aortic valve stenosis. No aortic regurgitation is present. Tricuspid Valve: The tricuspid valve leaflets are thin and pliable. There is trace tricuspid regurgitation. The right ventricular systolic pressure is estimated to be at least 28 mmHg based on an estimated right atrial pressure of 3 mm Hg. Pulmonic Valve: The pulmonic valve is not well seen, but is grossly normal. There is mild pulmonic regurgitation. Great Vessels: The aortic root is normal size. The dimensions of the ascending aorta are normal. The pulmonary artery is normal size. The IVC is of normal diameter and collapses greater than 50% with a sniff. This suggests a low right atrial pressure of 3 mm Hg. Pericardium/ Pleura There is no pericardial effusion. There is no pleural effusion. MMode/2D Measurements & Calculations LVIDd: 4.6 cm LVOT diam: 1.9 cm LVIDs: 3.2 cm Ao root diam: 2.9 cm FS: 29.9 % asc Aorta Diam: 3.2 cm EPSS: 0.41 cm IVSd: 0.68 cm LVPWd: 0.72 cm LV kern. diameter/BSA (cm/m^2): 2.7 LV sys. diameter/BSA (cm/m^2): 1.9 LA A2 area: 16.0 cm2 RA long axis: 4.8 cm LA A4 area: 15.0 cm2 RA area: 15.1 cm2 LA length (vol): 4.8 cm RA vol: 40.6 ml LA vol: 41.8 ml RA : 24.2 ml/m2 LA vol index: 24.9 ml/m2 IVC diam: 1.4 cm RVD1 (basal): 3.3 cm RVD2 (mid): 1.8 cm TAPSE: 2.7 cm Doppler Measurements & Calculations Ao V2 max: 133.8 cm/sec LVOT Max Unruly: 103.5 cm/sec Ao V2 mean: 94.0 cm/sec LV V1 max P.3 mmHg Ao max P.2 mmHg LV V1 VTI: 21.1 cm Ao mean P.9 mmHg JOSE ANGEL(I,D): 2.0 cm2 Ao V2 VTI: 29.0 cm JOSE ANGEL(V,D): 2.2 cm2 sev ratio: 0.73 JOSE ANGEL indexed to BSA (cm^2/m^2): 1.2 MV E max unruly: 58.6 cm/sec TR max unruly: 249.8 cm/sec MV A max unruly: 71.9 cm/sec TR max P.0 mmHg MV E/A: 0.81 PA V2 max: 100.7 cm/sec Med Peak E' Unruly: 7.5 cm/sec PA V2 mean: 69.3 cm/sec E/E' med: 7.8 PA mean P.2 mmHg Lat Peak E' Unruly: 11.1 cm/sec PA pr(Accel): 44.7 mmHg E/E' lat: 5.3 E/e' average: 6.5 MV dec time: 0.25 sec SV(LVOT): 59.1 ml Reading Physician:[id number] PM
== END ==
LOC: ECHO 14:52
PROVIDERS: PCP Family Medicine; Referring Provider Internal Medicine Cardiovascular Disease; Visit Provider Internal Medicine Cardiovascular Disease
DX: I34.81 Nonrheumatic mitral (valve) annulus calcification (principal); I37.1 Nonrheumatic pulmonary valve insufficiency; I49.3 Ventricular premature depolarization
CPT/HCPCS: 93306